=== PATIENT | male | born 1965 | race African-American/Black ===

== ENCOUNTER 2017-02-11 12:41 | Inpatient (IN) | payer OTHER ==
[2017-02-11 12:56] VITALS: BMI 21.6
--- NOTE | 2017-02-11 16:30 | HP ---
CIWA Score - CIWA Score Nausea/Vomitin-Mild Nausea/No Vomiting Muscle Tremors: 4-Moderate,w/Arms Extend Anxiety: 4-Mod. Anxious/Guarded Agitation: 4-Moderately Restless Paroxysmal Sweats: 1-Minimal Palms Moist Orientation: 0-Oriented Tacttile Disturbances: 0-None Auditory Disturbances: 0-None Visual Disturbances: 0-None Headache: 1-Very Mild CIWA-Ar Total Score: 15 Admission ROS BHS - HPI Chief Complaint: withdrawal sx Allergies/Adverse Reactions: Allergies Allergy/AdvReac Type Severity Reaction Status Date / Time No Known Allergies Allergy Verified 02/11/17 13:15 History of Present Illness: 52 years old male with long history of alcohol cocaine dependence has positive ppd and depression is admitted to detox Exam Limitations: No Limitations - Ebola screening Have you traveled outside of the country in the last 21 days: No Have you had contact with anyone from an Ebola affected area: No Have you been sick,other than usual withdrawal symptoms: No Do you have a fever: No - Review of Systems Constitutional: Loss of Appetite, Changes in sleep, Unintentional Wgt. Loss, Unexplained wgt Loss EENT: reports: No Symptoms Reported Respiratory: reports: No Symptoms reported Cardiac: reports: No Symptoms Reported GI: reports: Nausea, Poor Appetite, Poor Fluid Intake, Indigestion, Abdominal cramping : reports: No Symptoms Reported Musculoskeletal: reports: No Symptoms Reported Integumentary: reports: No Symptoms Reported Neuro: reports: Tremors Endocrine: reports: No Symptoms Reported Hematology: reports: No Symptoms Reported Psychiatric: reports: Judgement Intact, Orientated x3, Anxious, Depressed Other Systems: Reviewed and Negative Patient History - Patient Medical History Hx Anemia: No Hx Asthma: No Hx Chronic Obstructive Pulmonary Disease (COPD): No Hx Cancer: No Hx Cardiac Disorders: No Hx Congestive Heart Failure: No Hx Hypertension: No Hx Hypercholesterolemia: No Hx Pacemaker: No HX Cerebrovascular Accident: No Hx Seizures: No Hx Dementia: No Hx Diabetes: No Hx Gastrointestinal Disorders: Yes (acid reflux) Hx Liver Disease: No Hx Genitourinary Disorders: No Hx Sexually Transmitted Disorders: No Hx Renal Disease (ESRD): No Hx Thyroid Disease: No Hx Human Immunodeficiency Virus (HIV): No Hx Hepatitis C: No Hx Depression: Yes Hx Suicide Attempt: No Hx Bipolar Disorder: No Hx Schizophrenia: No - Patient Surgical History Past Surgical History: Yes Hx Neurologic Surgery: No Hx Cataract Extraction: No Hx Cardiac Surgery: No Hx Lung Surgery: No Hx Breast Surgery: No Hx Breast Biopsy: No Hx Abdominal Surgery: No Hx Appendectomy: No Hx Cholecystectomy: No Hx Genitourinary Surgery: No Hx Orthopedic Surgery: Yes (left thumb 2014) Anesthesia Reaction: No - PPD History Previous Implant?: No Documented Results: Positive w/o proof Implanted On Prior R Admission?: No PPD to be Administered?: No - Smoking Cessation Smoking history: Never smoked Have you smoked in the past 12 months: No Hx Chewing Tobacco Use: No Initiated information on smoking cessation: No - Substance & Tx. History Hx Alcohol Use: Yes Hx Substance Use: Yes Substance Use Type: Alcohol, Cocaine Hx Substance Use Treatment: Yes (2013) - Substances Abused Crack Route: Smoking Frequency: Daily Amount used: $200 Age of first use: 28 Date of Last Use: 02/10/17 Alcohol-vodka/beer Route: Oral Frequency: Daily Amount used: 1/2 pt./4-5 (24 oz.) Age of first use: 13 Date of Last Use: 02/10/17 Family Disease History - Family Disease History Family Disease History: Heart Disease: Mother (), Other: Father ( chronic back pain), Mother, Brother (1 brother), Sister (3 sisters) Admission Physical Exam S - Vital Signs Vital Signs: Vital Signs - 24 hr 02/11/17 12:54 Temperature 97 F L Pulse Rate 72 Respiratory 20 Rate Blood Pressure 131/97 - Physical General Appearance: Yes: Appropriately Dressed, Mild Distress, Thin, Tremorous, Irritable, Sweating, Anxious HEENTM: Yes: Hearing grossly Normal, Normal ENT Inspection, Normocephalic, Normal Voice Respiratory: Yes: Chest Non-Tender, Lungs Clear, Normal Breath Sounds, No Respiratory Distress, No Accessory Muscle Use Neck: Yes: Supple, Trachea in good position Breast: Yes: Breasts Symetrical Cardiology: Yes: Regular Rhythm, Regular Rate, S1, S2 Abdominal: Yes: Non Tender, Soft, Increased Bowel Sounds Genitourinary: Yes: Within Normal Limits Back: Yes: Normal Inspection Musculoskeletal: Yes: full range of Motion, Gait Steady Extremities: Yes: Normal Inspection, Normal Range of Motion, Non-Tender, Tremors Neurological: Yes: Fully Oriented, Alert, Motor Strength 5/5, Normal Response, Depressed Affect Integumentary: Yes: Warm Lymphatic: Yes: Within Normal Limits - Diagnostic (1) Alcohol dependence with uncomplicated withdrawal Current Visit: Yes Status: Acute (2) Cocaine dependence, uncomplicated Current Visit: Yes Status: Chronic (3) Positive PPD, treated Current Visit: Yes Status: Resolved (4) Weight loss Current Visit: Yes Status: Acute (5) GERD (gastroesophageal reflux disease) Current Visit: Yes Status: Suspected Qualifiers: Esophagitis presence: without esophagitis Qualified Code(s): K21.9 - Gastro-esophageal reflux disease without esophagitis Cleared for Admission S - Detox or Rehab [facility] Level of Care: Medically Managed Detox Regimen/Protocol: Librium [facility] Breath Alcohol Content Breath Alcohol Content: 0 Urine Drug Screen - Results Drug Screen Negative: No Urine Drug Screen Results: BLANCO-Cocaine
[2017-02-11] MEDS ORDERED: hydrOXYzine PAMOATE 50 MG CAPSULE (FP) PO PRN (16:33)
[2017-02-11] MEDS ORDERED: MAGNESIUM CITRATE 300 ML BOTTLE PO PRN (16:33)
[2017-02-11] MEDS ORDERED: guaiFENesin/D-METHORPHAN HB 10 ML UNIT-DOSE CUPS PO PRN (16:33)
[2017-02-11] MEDS ORDERED: MAG HYDROX/AL HYDROX/SIMETH 30 ML UNIT-DOSE CUP PO PRN (16:33)
[2017-02-11] MEDS ORDERED: ACETAMINOPHEN 325 MG TABLET (FP) PO PRN (16:33)
[2017-02-11] MEDS ORDERED: diphenhydrAMINE HCL 50 MG CAPSULE PO PRN (16:33)
[2017-02-11] MEDS ORDERED: P-EPHED 60MG/TRIPROLIDI 2.5MG TABLET PO PRN (16:33)
[2017-02-11] MEDS ORDERED: LOPERAMIDE HCL 2 MG CAPSULE PO PRN (16:33)
[2017-02-11] MEDS ORDERED: chlordiazePOXIDE HCL 25 MG CAPSULE PO PRN (16:33)
[2017-02-11] MEDS ORDERED: MAGNESIUM HYDROX 2400MG/30ML ORAL SUSPENSION 30 ML CUP PO PRN (16:33)
[2017-02-11] MEDS ORDERED: MENTHOL/PHENOL 1 EACH UD MM PRN (16:33)
[2017-02-11] MEDS: RANITIDINE HCL 150 MG TABLET (FP) PO SCH (23:09)
[2017-02-11] MEDS: chlordiazePOXIDE HCL 25 MG CAPSULE PO SCH (23:09)
[2017-02-11] MEDS: THIAMINE HCL 100 MG TABLET (FP) PO SCH (23:09)
[2017-02-12 00:48] LABS: URINE APPEARANCE CLEAR; URINE BILIRUBIN NEGATIVE (NEGATIVE); URINE BLOOD NEGATIVE (NEGATIVE); URINE COLOR YELLOW; URINE GLUCOSE (UA) NEGATIVE (NEGATIVE); URINE KETONE NEGATIVE (NEGATIVE); URINE LEUK ESTERASE NEGATIVE (NEGATIVE); URINE NITRITE NEGATIVE (NEGATIVE); URINE PROTEIN NEGATIVE (NEGATIVE); URINE UROBILINOGEN NEGATIVE mg/dL (0.2-1.0)
[2017-02-12] MEDS: chlordiazePOXIDE HCL 25 MG CAPSULE PO SCH ×4 (06:03→23:01)
--- NOTE | 2017-02-12 09:46 | CONSULT ---
[facility] Psychiatric Consult - Data Date of interview: 02/12/17 Admission source: [facility] Identifying data: This is 52 years old AA male unempoyed admitted for Alcohol,Cocaine dependence. Substance Abuse History: Patient reports drinking since 13 yo (1/2 pint of vodka and 4-5 24 oz of beer daily),Crack/cocaine since 28 year sold,spending $ 200 daily. Medical History: Significant for GERD,weight loss. Psychiatric History: Reports first contact with psychiatrist last year when he was admitted to the hospital in [facility] due to depression, expressing suicidal ideas after seaparation with his .patient was also under influence of crack.He was treated with Remeron 15 mg po hs.patient didnt continue his meds after discharge.He reports feeling depressed on and off but is not feeling like started psychotropic at present. Physical/Sexual Abuse/Trauma History: denies Mental Status Exam - Mental Status Exam Alert and Oriented to: Time, Place, Person Cognitive Function: Grossly Intact Patient Appearance: Unkempt Mood: Hopeful Affect: Mood Congruent Patient Behavior: Wandering, Cooperative Voice Loudness: Normal Thought Process: Goal Oriented Thought Disorder: Not Present, Paranoid Ideation Suicidal Ideation: Denies Homicidal Ideation: Denies Insight/Judgement: Fair Sleep: Fair Appetite: Good Muscle strength/Tone: Normal Gait/Station: Normal Psychiatric Findings - Problem List ([place] 1, 2,3) (1) Alcohol dependence with uncomplicated withdrawal Current Visit: Yes Status: Chronic (2) Weight loss Current Visit: Yes Status: Chronic (3) Cocaine dependence, uncomplicated Current Visit: Yes Status: Chronic (4) GERD (gastroesophageal reflux disease) Current Visit: Yes Status: Chronic Qualifiers: Esophagitis presence: without esophagitis Qualified Code(s): K21.9 - Gastro-esophageal reflux disease without esophagitis (5) Positive PPD, treated Current Visit: Yes Status: Resolved (6) Substance induced mood disorder Current Visit: Yes Status: Chronic - Initial Treatment Plan Initial Treatment Plan: Will monitor progress.Consider antidepressants if needed.
[2017-02-12 09:57] LABS: MCH 29.9 pg (25.7-33.7); MCHC 33.5 g/dl (32.0-35.9); MEAN CELL VOLUME 89.4 fl (80-96); MEAN PLT VOLUME 9.1 fl (7.5-11.1); PLATELET COUNT 295 K/MM3 (134-434); RDW 13.1 % (11.9-15.9)
[2017-02-12 10:10] LABS: ALBUMIN 3.4 g/dl (3.4-5.0); ALK PHOS 73 U/L (45-117); ANION GAP 5 (8-16); BILIRUBIN,TOTAL 0.3 mg/dL (0.2-1.0); CALCIUM 8.8 mg/dL (8.5-10.1); CO2 28 mmol/L (21-32); GLUCOSE,RANDOM 124 mg/dL (74-106); SGOT/AST 32 U/L (15-37); SGPT/ALT 41 U/L (12-78); TOT PROT 7.1 g/dl (6.4-8.2)
[2017-02-12] MEDS: RANITIDINE HCL 150 MG TABLET (FP) PO SCH ×2 (10:36→23:01)
[2017-02-12] MEDS: PRENATAL VITAMINS W/ FOLIC ACID TABLET (FP) PO SCH (10:36)
--- NOTE | 2017-02-12 12:48 | PN ---
S CIWA - CIWA Score Nausea/Vomitin-No Nausea/No Vomiting Muscle Tremors: 4-Moderate,w/Arms Extend Anxiety: 3 Agitation: 3 Paroxysmal Sweats: 1-Minimal Palms Moist Orientation: 0-Oriented Tacttile Disturbances: 1-Very Mild Itch/Numbness Auditory Disturbances: 0-None Visual Disturbances: 2-Mild Sensitivity Headache: 4-Moderately Severe CIWA-Ar Total Score: 18 BHS Progress Note (SOAP) Subjective: Tremors, H/A, Sweating, Body Aches. Objective: PT. A & O X 3. NO ACUTE DISTRESS. 02/12/17 12:49 Vital Signs Temperature 97.6 F 02/12/17 11:22 Pulse Rate 74 02/12/17 11:22 Respiratory Rate 17 02/12/17 11:22 Blood Pressure 115/81 02/12/17 11:22 O2 Sat by Pulse Oximetry (%) Laboratory Tests 02/11/17 02/12/17 02/12/17 21:27 06:00 06:00 WBC 8.0 RBC 4.43 Hgb 13.3 Hct 39.6 MCV 89.4 MCH 29.9 MCHC 33.5 RDW 13.1 Plt Count 295 MPV 9.1 Sodium 140 Potassium 4.1 Chloride 107 Carbon Dioxide 28 Anion Gap 5 L BUN 21 H Creatinine 1.0 Creat Clearance w eGFR > 60 Random Glucose 124 H Calcium 8.8 Total Bilirubin 0.3 AST 32 ALT 41 Alkaline Phosphatase 73 Total Protein 7.1 Albumin 3.4 Urine Color Yellow Urine Appearance Clear Urine pH 5.0 Urine Protein Negative Urine Glucose (UA) Negative Urine Ketones Negative Urine Blood Negative Urine Nitrite Negative Urine Bilirubin Negative Urine Urobilinogen Negative RPR Titer 02/12/17 06:00 WBC RBC Hgb Hct MCV MCH MCHC RDW Plt Count MPV Sodium Potassium Chloride Carbon Dioxide Anion Gap BUN Creatinine Creat Clearance w eGFR Random Glucose Calcium Total Bilirubin AST ALT Alkaline Phosphatase Total Protein Albumin Urine Color Urine Appearance Urine pH Urine Protein Urine Glucose (UA) Urine Ketones Urine Blood Urine Nitrite Urine Bilirubin Urine Urobilinogen RPR Titer Nonreactive LABS NOTED. HIV AB, HCV AB RESULTS PENDING. 02/12/17 12:52 Assessment: 02/12/17 12:49 WITHDRAWAL SYMPTOMS. Plan: CONTINUE DETOX. BGM ACBK FOR ELEVATED ADMISSION RANDOM GLUCOSE LEVEL. INCREASE DAILY PO FLUID INTAKE.
[2017-02-12 15:06] LABS: HIV 1 & 2 AB NEGATIVE; HIV 1 AGp24 NEGATIVE
[2017-02-12] MEDS: THIAMINE HCL 100 MG TABLET (FP) PO SCH (23:01)
[2017-02-13] MEDS: chlordiazePOXIDE HCL 25 MG CAPSULE PO SCH ×3 (06:20→17:30)
[2017-02-13] MEDS: PRENATAL VITAMINS W/ FOLIC ACID TABLET (FP) PO SCH (10:38)
[2017-02-13] MEDS: RANITIDINE HCL 150 MG TABLET (FP) PO SCH ×2 (10:38→22:33)
--- NOTE | 2017-02-13 19:37 | PN ---
[facility] CIWA - CIWA Score Nausea/Vomitin-No Nausea/No Vomiting Muscle Tremors: 3 Anxiety: 2 Agitation: 0-Normal Activity Paroxysmal Sweats: 4-Forehead w/Sweat Beads Orientation: 0-Oriented Tacttile Disturbances: 3-Moderate Itch/Numb/Burn Auditory Disturbances: 0-None Visual Disturbances: 0-None Headache: 3-Moderate CIWA-Ar Total Score: 15 BHS Progress Note (SOAP) Subjective: Body Aches, H/A, Sweating, Fatigue. Objective: PT. A & O X 3. NO ACUTE DISTRESS. PT. DENIES CHEST PAIN. 02/13/17 19:34 Vital Signs Temperature 97.9 F 02/13/17 18:11 Pulse Rate 64 02/13/17 18:11 Respiratory Rate 18 02/13/17 18:11 Blood Pressure 115/74 02/13/17 18:11 O2 Sat by Pulse Oximetry (%) Laboratory Tests 02/11/17 02/12/17 02/12/17 21:27 06:00 06:00 WBC 8.0 RBC 4.43 Hgb 13.3 Hct 39.6 MCV 89.4 MCH 29.9 MCHC 33.5 RDW 13.1 Plt Count 295 MPV 9.1 Sodium Potassium Chloride Carbon Dioxide Anion Gap BUN Creatinine Creat Clearance w eGFR Random Glucose Calcium Total Bilirubin AST ALT Alkaline Phosphatase Total Protein Albumin Urine Color Yellow Urine Appearance Clear Urine pH 5.0 Urine Protein Negative Urine Glucose (UA) Negative Urine Ketones Negative Urine Blood Negative Urine Nitrite Negative Urine Bilirubin Negative Urine Urobilinogen Negative RPR Titer Hepatitis C Antibody <0.1 HIV 1&2 Antibody Screen HIV P24 Antigen 02/12/17 02/12/17 02/12/17 06:00 06:00 08:30 WBC RBC Hgb Hct MCV MCH MCHC RDW Plt Count MPV Sodium 140 Potassium 4.1 Chloride 107 Carbon Dioxide 28 Anion Gap 5 L BUN 21 H Creatinine 1.0 Creat Clearance w eGFR > 60 Random Glucose 124 H Calcium 8.8 Total Bilirubin 0.3 AST 32 ALT 41 Alkaline Phosphatase 73 Total Protein 7.1 Albumin 3.4 Urine Color Urine Appearance Urine pH Urine Protein Urine Glucose (UA) Urine Ketones Urine Blood Urine Nitrite Urine Bilirubin Urine Urobilinogen RPR Titer Nonreactive Hepatitis C Antibody HIV 1&2 Antibody Screen Negative HIV P24 Antigen Negative LABS NOTED. Assessment: 02/13/17 19:34 WITHDRAWAL SYMPTOMS. Plan: CONTINUE DETOX. INCREASE DAILY PO FLUID INTAKE.
[2017-02-13] MEDS: chlordiazePOXIDE 5 MG CAPSULE PO SCH (22:33)
[2017-02-13] MEDS: THIAMINE HCL 100 MG TABLET (FP) PO SCH (22:33)
[2017-02-14] MEDS: chlordiazePOXIDE 5 MG CAPSULE PO SCH ×3 (05:35→17:32)
[2017-02-14] MEDS: RANITIDINE HCL 150 MG TABLET (FP) PO SCH (10:33)
[2017-02-14] MEDS: PRENATAL VITAMINS W/ FOLIC ACID TABLET (FP) PO SCH (10:33)
[2017-02-14 18:26] VITALS: BP 124/86; PULSE 75; TEMP 97.9
--- NOTE | 2017-02-14 18:35 | PN ---
BHS Progress Note (SOAP) Subjective: Sweating, anxious, interrupted sleep Objective: 02/14/17 18:34 Last Vital Signs Temp Pulse Resp BP Pulse Ox 97.9 F 75 18 124/86 02/14/17 18:26 02/14/17 18:26 02/14/17 18:26 02/14/17 18:26 Laboratory Tests 02/11/17 02/12/17 02/12/17 21:27 06:00 06:00 WBC 8.0 RBC 4.43 Hgb 13.3 Hct 39.6 MCV 89.4 MCH 29.9 MCHC 33.5 RDW 13.1 Plt Count 295 MPV 9.1 Sodium Potassium Chloride Carbon Dioxide Anion Gap BUN Creatinine Creat Clearance w eGFR POC Glucometer Random Glucose Calcium Total Bilirubin AST ALT Alkaline Phosphatase Total Protein Albumin Urine Color Yellow Urine Appearance Clear Urine pH 5.0 Urine Protein Negative Urine Glucose (UA) Negative Urine Ketones Negative Urine Blood Negative Urine Nitrite Negative Urine Bilirubin Negative Urine Urobilinogen Negative RPR Titer Hepatitis C Antibody <0.1 HIV 1&2 Antibody Screen HIV P24 Antigen 02/12/17 02/12/17 02/12/17 06:00 06:00 08:30 WBC RBC Hgb Hct MCV MCH MCHC RDW Plt Count MPV Sodium 140 Potassium 4.1 Chloride 107 Carbon Dioxide 28 Anion Gap 5 L BUN 21 H Creatinine 1.0 Creat Clearance w eGFR > 60 POC Glucometer Random Glucose 124 H Calcium 8.8 Total Bilirubin 0.3 AST 32 ALT 41 Alkaline Phosphatase 73 Total Protein 7.1 Albumin 3.4 Urine Color Urine Appearance Urine pH Urine Protein Urine Glucose (UA) Urine Ketones Urine Blood Urine Nitrite Urine Bilirubin Urine Urobilinogen RPR Titer Nonreactive Hepatitis C Antibody HIV 1&2 Antibody Screen Negative HIV P24 Antigen Negative 02/14/17 05:36 WBC RBC Hgb Hct MCV MCH MCHC RDW Plt Count MPV Sodium Potassium Chloride Carbon Dioxide Anion Gap BUN Creatinine Creat Clearance w eGFR POC Glucometer 101 Random Glucose Calcium Total Bilirubin AST ALT Alkaline Phosphatase Total Protein Albumin Urine Color Urine Appearance Urine pH Urine Protein Urine Glucose (UA) Urine Ketones Urine Blood Urine Nitrite Urine Bilirubin Urine Urobilinogen RPR Titer Hepatitis C Antibody HIV 1&2 Antibody Screen HIV P24 Antigen Labs noted Assessment: 02/14/17 18:35 Withdrawal symptoms Plan: Continue detox
[2017-02-14] MEDS ORDERED: chlordiazePOXIDE HCL 10 MG CAPSULE PO SCH (23:00)
--- NOTE | 2017-02-15 17:04 | EKG ---
Test Reason : Blood Pressure : / mmHG Vent. Rate : 055 BPM Atrial Rate : 055 BPM P-R Int : 160 ms QRS Dur : 080 ms QT Int : 464 ms P-R-T Axes : 075 041 -34 degrees QTc Int : 443 ms SINUS BRADYCARDIA WITH SINUS ARRHYTHMIA T WAVE ABNORMALITY, CONSIDER INFERIOR ISCHEMIA ABNORMAL ECG NO PREVIOUS ECGS AVAILABLE Confirmed by NILAM RESTREPO MD ([id number]) on 02/15/2017 5:04:34 PM Referred By: Confirmed By:NILAM RESTREPO MD
== END 2017-02-14 18:58 | disposition left against medical advice (07) | DRG 770 ==
LOC: YASAS 12:41 → Y3N 14:22
PROVIDERS: ADMIT Internal Medicine; ATTEND Internal Medicine
PROC: HZ2ZZZZ Detoxification Services for Substance Abuse Treatment (ICD-10-PCS; principal; 2017-02-11)
DX: F10.230 Alcohol dependence with withdrawal, uncomplicated (principal); F14.20 Cocaine dependence, uncomplicated; F19.24 Other psychoactive substance dependence with psychoactive substance-induced mood disorder; R76.11 Nonspecific reaction to tuberculin skin test without active tuberculosis; K21.9 Gastro-esophageal reflux disease without esophagitis; R63.4 Abnormal weight loss; Z68.21 Body mass index [BMI] 21.0-21.9, adult; Z59.0 Homelessness
CPT/HCPCS: 36415; 71020-TC; 80053; 81003; 85027; 86593; 86803; 87389; 93005; 93010

== ENCOUNTER 2017-05-21 21:11 | Inpatient (IN) | payer OTHER ==
[2017-05-21 21:31] VITALS: BMI 26.9
--- NOTE | 2017-05-21 21:56 | HP ---
CIWA Score - CIWA Score Nausea/Vomitin Muscle Tremors: 4-Moderate,w/Arms Extend Anxiety: 4-Mod. Anxious/Guarded Agitation: 4-Moderately Restless Paroxysmal Sweats: 1-Minimal Palms Moist Orientation: 0-Oriented Tacttile Disturbances: 0-None Auditory Disturbances: 0-None Visual Disturbances: 0-None Headache: 3-Moderate CIWA-Ar Total Score: 19 Admission ROS BHS - HPI Chief Complaint: Alcohol withdrawal symptoms Allergies/Adverse Reactions: Allergies Allergy/AdvReac Type Severity Reaction Status Date / Time No Known Allergies Allergy Verified 05/21/17 23:46 History of Present Illness: 52 years old male with a long history of alcohol dependence is admitted to detox. Patient has been in previous detox and reports 3 years of sobriety. Patient reports history of anxiety and depression. Denies suicidal ideation at this time. Exam Limitations: No Limitations - Ebola screening Have you traveled outside of the country in the last 21 days: No Have you had contact with anyone from an Ebola affected area: No Have you been sick,other than usual withdrawal symptoms: No Do you have a fever: No - Review of Systems Constitutional: Chills, Diaphoresis, Loss of Appetite, Malaise, Night Sweats, Changes in sleep EENT: reports: No Symptoms Reported Respiratory: reports: No Symptoms reported Cardiac: reports: No Symptoms Reported GI: reports: Diarrhea (x 3), Poor Appetite, Poor Fluid Intake, Abdominal cramping : reports: No Symptoms Reported Musculoskeletal: reports: Back Pain, Joint Pain, Muscle Pain, Muscle Weakness, Neck Pain Integumentary: reports: No Symptoms Reported Neuro: reports: Headache, Tingling, Tremors Endocrine: reports: No Symptoms Reported Hematology: reports: No Symptoms Reported Psychiatric: reports: Judgement Intact, Mood/Affect Appropiate, Orientated x3 Other Systems: Reviewed and Negative Patient History - Patient Medical History Hx Anemia: No Hx Asthma: No Hx Chronic Obstructive Pulmonary Disease (COPD): No Hx Cancer: No Hx Cardiac Disorders: No Hx Congestive Heart Failure: No Hx Hypertension: No Hx Hypercholesterolemia: No Hx Pacemaker: No HX Cerebrovascular Accident: No Hx Seizures: No Hx Dementia: No Hx Diabetes: No Hx Gastrointestinal Disorders: Yes (acid reflux) Hx Liver Disease: No Hx Genitourinary Disorders: No Hx Sexually Transmitted Disorders: No Hx Renal Disease (ESRD): No Hx Thyroid Disease: No Hx Human Immunodeficiency Virus (HIV): No Hx Hepatitis C: No Hx Depression: Yes Hx Suicide Attempt: No Hx Bipolar Disorder: No Hx Schizophrenia: No - Patient Surgical History Past Surgical History: Yes Hx Neurologic Surgery: No Hx Cataract Extraction: No Hx Cardiac Surgery: No Hx Lung Surgery: No Hx Breast Surgery: No Hx Breast Biopsy: No Hx Abdominal Surgery: No Hx Appendectomy: No Hx Cholecystectomy: No Hx Genitourinary Surgery: No Hx Section: Yes Hx Orthopedic Surgery: Yes (left thumb 2015) Anesthesia Reaction: No - PPD History Previous Implant?: No (PPD POSITIVE) PPD to be Administered?: No - Reproductive History Patient is a Female of Child Bearing Age (11 -55 yrs old): No (MALE) - Smoking Cessation Smoking history: Never smoked Have you smoked in the past 12 months: No Hx Chewing Tobacco Use: No Initiated information on smoking cessation: No - Substance & Tx. History Hx Alcohol Use: Yes (BEER) Hx Substance Use: Yes Substance Use Type: Alcohol, Cocaine, Marijuana Hx Substance Use Treatment: Yes - Substances Abused BEER, VODKA Route: Oral Frequency: Daily Amount used: BEER-8 X 16 OZ, VODKA 1 PINT Age of first use: 12 Date of Last Use: 05/21/17 Marijuana/Hashish Route: Smoking Frequency: Daily Amount used: $20 Age of first use: 12 Date of Last Use: 05/21/17 Cocaine Route: Inhalation Frequency: Daily Amount used: 2 GRAM OR $200 Age of first use: 15 Date of Last Use: 05/21/17 Family Disease History - Family Disease History Family Disease History: Heart Disease: Mother (), Other: Father ( chronic back pain), Mother Admission Physical Exam [facility] - Vital Signs Vital Signs: Vital Signs - 24 hr 05/21/17 21:29 Temperature 97.8 F Pulse Rate 67 Respiratory 18 Rate Blood Pressure 130/83 - Physical General Appearance: Yes: Moderate Distress, Tremorous, Sweating, Anxious HEENTM: Yes: EOMI, Normal Voice, DASHAWN Respiratory: Yes: Lungs Clear, Normal Breath Sounds, No Respiratory Distress Neck: Yes: Within Normal Limits, No masses,lesions,Nodules, Supple Breast: Yes: Breast Exam Deferred Cardiology: Yes: Regular Rhythm, Regular Rate, S1, S2, Other (tatoo to chest wall) Abdominal: Yes: Normal Bowel Sounds, Soft Genitourinary: Yes: Within Normal Limits Back: Yes: Within Normal Limits Musculoskeletal: Yes: Within Normal Limits, Joint swelling, Muscle Pain, Muscle weakness Extremities: Yes: Tremors, Other (right arm tatoo) Neurological: Yes: Alert, Normal Mood/Affect, Normal Response Integumentary: Yes: Dry Lymphatic: Yes: Within Normal Limits - Diagnostic (1) Cannabis dependence, uncomplicated Current Visit: Yes Status: Acute (2) Depression Current Visit: Yes Status: Chronic Qualifiers: Depression Type: unspecified Qualified Code(s): F32.9 - Major depressive disorder, single episode, unspecified (3) Alcohol dependence with uncomplicated withdrawal Current Visit: Yes Status: Acute (4) Cocaine dependence, uncomplicated Current Visit: Yes Status: Acute (5) GERD (gastroesophageal reflux disease) Current Visit: No Status: Chronic Qualifiers: Esophagitis presence: without esophagitis Qualified Code(s): K21.9 - Gastro -esophageal reflux disease without esophagitis Cleared for Admission [facility] - Detox or Rehab [facility] Level of Care: Medically Managed Detox Regimen/Protocol: Librium [facility] Breath Alcohol Content Breath Alcohol Content: 0 Urine Drug Screen - Results Drug Screen Negative: No Urine Drug Screen Results: THC-Marijuana, BLANCO-Cocaine
[2017-05-21] MEDS ORDERED: guaiFENesin/D-METHORPHAN HB 10 ML UNIT-DOSE CUPS PO PRN (22:02)
[2017-05-21] MEDS ORDERED: chlordiazePOXIDE HCL 25 MG CAPSULE PO PRN (22:02)
[2017-05-21] MEDS ORDERED: ACETAMINOPHEN 325 MG TABLET (FP) PO PRN (22:02)
[2017-05-21] MEDS ORDERED: IBUPROFEN 400 MG TABLET (FP) PO PRN (22:02)
[2017-05-21] MEDS ORDERED: MENTHOL/PHENOL 1 EACH UD MM PRN (22:02)
[2017-05-21] MEDS ORDERED: LOPERAMIDE HCL 2 MG CAPSULE PO PRN (22:02)
[2017-05-21] MEDS ORDERED: MAG HYDROX/AL HYDROX/SIMETH 30 ML UNIT-DOSE CUP PO PRN (22:02)
[2017-05-21] MEDS ORDERED: MAGNESIUM CITRATE 300 ML BOTTLE PO PRN (22:02)
[2017-05-21] MEDS ORDERED: P-EPHED 60MG/TRIPROLIDI 2.5MG TABLET PO PRN (22:02)
[2017-05-21] MEDS ORDERED: MAGNESIUM HYDROX 2400MG/30ML ORAL SUSPENSION 30 ML CUP PO PRN (22:02)
[2017-05-21] MEDS: chlordiazePOXIDE HCL 25 MG CAPSULE PO SCH (23:49)
[2017-05-22] MEDS: chlordiazePOXIDE HCL 25 MG CAPSULE PO SCH ×4 (05:26→22:24)
[2017-05-22 10:16] LABS: MCH 29.1 pg (25.7-33.7); MEAN CELL VOLUME 91.2 fl (80-96); MEAN PLT VOLUME 8.4 fl (7.5-11.1); PLATELET COUNT 281 K/MM3 (134-434); RDW 13.5 % (11.9-15.9); WHITE BLOOD COUNT 6.1 K/mm3 (4.0-10.0)
[2017-05-22 10:24] LABS: ALK PHOS 65 U/L (45-117); ANION GAP 7 (8-16); BILIRUBIN,TOTAL 0.2 mg/dL (0.2-1.0); CALCIUM 8.4 mg/dL (8.5-10.1); CO2 27 mmol/L (21-32); CREATININE 0.9 mg/dL (0.7-1.3); GLUCOSE,RANDOM 86 mg/dL (74-106); SGOT/AST 13 U/L (15-37); SGPT/ALT 22 U/L (12-78); TOT PROT 6.2 g/dl (6.4-8.2)
--- NOTE | 2017-05-22 10:58 | CONSULT ---
[facility] Psychiatric Consult - Data Date of interview: 05/22/17 Admission source: [facility] Identifying data: Readmission to [facility] for this 52 y/o AA male seeking detox treatment on for alcohol,cocaine (crack) and marijuana dependence.Patient is single,a father of one,domiciled,currently unemployed ( just quit his job) and deprived of any source of income. Substance Abuse History: Discussed in this interview.History of substance abuse confirmed by patient.See details in current [facility] report : Smoking history: Never smoked. Have you smoked in the past 12 months: No. Hx Chewing Tobacco Use: No. Initiated information on smoking cessation: No. - Substance & Tx. History. Hx Alcohol Use: Yes (BEER). Hx Substance Use: Yes. Substance Use Type: Alcohol, Cocaine, Marijuana. Hx Substance Use Treatment: Yes. - Substances Abused. BEER, VODKA. Route: Oral. Frequency: Daily. Amount used: BEER-8 X 16 OZ, VODKA 1 PINT. Age of first use: 12. Date of Last Use: . Marijuana/Hashish. Route: Smoking. Frequency: Daily. Amount used : $20. Age of first use: 12. Date of Last Use: 05/21/17. Cocaine. Route: Inhalation. Frequency: Daily. Amount used: 2 GRAM OR $200. Age of first use: 15. Date of Last Use: 05/21/17 Medical History: GERD. Psychiatric History: Onset of emotional disturbances seems to correlate with separation from ([id number]).Patient reports one psychiatric hospitalization at a facility in [facility] (suicidal ideation,depressed mood, anxiety,deterioration of functioning,refractory insomnia).Mr Montalvo indicates that he was treated with remeron 15 mg/hs.Patient dropped out of treatment after his discharge.During his stay at [facility] - 02/12/17 to 02/17/17 - he declined to take psychotropic medications.No reported history of suicide attempts. Physical/Sexual Abuse/Trauma History: Patient denies history of abuse. Additional Comment: Urine Drug Screen Results: THC-Marijuana, BLANCO-Cocaine.Noted. Mental Status Exam - Mental Status Exam Alert and Oriented to: Time, Place, Person Cognitive Function: Good Patient Appearance: Well Groomed Mood: Withdrawn, Hopeful, Euthymic Affect: Appropriate, Normal Range Patient Behavior: Fatigued, Appropriate, Cooperative Speech Pattern: Clear, Appropriate Voice Loudness: Normal Thought Process: Intact, Goal Oriented Thought Disorder: Not Present Hallucinations: Denies Suicidal Ideation: Denies Homicidal Ideation: Denies Insight/Judgement: Poor Sleep: Poorly, Difficulty falling asleep (wants ambien) Appetite: Good Muscle strength/Tone: Normal Gait/Station: Normal Psychiatric Findings - Problem List ([place] 1, 2,3) (1) Alcohol dependence with uncomplicated withdrawal Current Visit: Yes Status: Acute (2) Cannabis dependence, uncomplicated Current Visit: Yes Status: Acute (3) Cocaine dependence, uncomplicated Current Visit: Yes Status: Acute (4) Substance induced mood disorder Current Visit: Yes Status: Acute (5) Insomnia Current Visit: Yes Status: Acute - Initial Treatment Plan Initial Treatment Plan: Psychoeducation.Sleep hygiene.Detoxification.Ambien 10 mg po hs prn.Patient is informed of risk of parasomnias.Consented (verbally) to folllow this careplan.Observation.
[2017-05-22] MEDS: PRENATAL VITAMINS W/ FOLIC ACID TABLET (FP) PO SCH (11:17)
--- NOTE | 2017-05-22 15:10 | PN ---
[facility] CIWA - CIWA Score Nausea/Vomitin-No Nausea/No Vomiting Muscle Tremors: 3 Anxiety: 4-Mod. Anxious/Guarded Agitation: 2 Paroxysmal Sweats: 3 Orientation: 2-Disoriented Date<2 days Tacttile Disturbances: 1-Very Mild Itch/Numbness Auditory Disturbances: 0-None Visual Disturbances: 0-None Headache: 3-Moderate CIWA-Ar Total Score: 18 BHS Progress Note (SOAP) Subjective: Diarrhea, Sweating, H/A, Tremors, Vomiting, Fatigue. Objective: PT. A & O X 2 (UNCERTAIN ABOUT DAY / DATE). PT. OBSERVED AMBULATING ON UNIT. NO ACUTE DISTRESS. 05/22/17 15:11 Vital Signs Temperature 97.8 F 05/22/17 13:29 Pulse Rate 63 05/22/17 13:29 Respiratory Rate 18 05/22/17 13:29 Blood Pressure 121/73 05/22/17 13:29 O2 Sat by Pulse Oximetry (%) Laboratory Tests 05/22/17 05/22/17 05/22/17 07:50 07:50 07:50 WBC 6.1 RBC 4.22 Hgb 12.3 Hct 38.4 MCV 91.2 MCH 29.1 MCHC 32.0 RDW 13.5 Plt Count 281 MPV 8.4 Sodium 142 Potassium 3.8 Chloride 108 H Carbon Dioxide 27 Anion Gap 7 L BUN 20 H Creatinine 0.9 Creat Clearance w eGFR > 60 Random Glucose 86 D Calcium 8.4 L Total Bilirubin 0.2 D AST 13 L D ALT 22 D Alkaline Phosphatase 65 Total Protein 6.2 L Albumin 3.0 L RPR Titer Nonreactive LABS NOTED. UA RESULTS PENDING. 05/22/17 15:12 Assessment: 05/22/17 15:11 WITHDRAWAL SYMPTOMS. Plan: CONTINUE DETOX.
[2017-05-22] MEDS ORDERED: ZOLPIDEM TARTRATE 5 MG TABLET PO PRN (22:00)
[2017-05-22] MEDS: THIAMINE HCL 100 MG TABLET (FP) PO SCH (22:23)
[2017-05-23] MEDS: chlordiazePOXIDE HCL 25 MG CAPSULE PO SCH ×3 (06:02→16:47)
[2017-05-23] MEDS: PRENATAL VITAMINS W/ FOLIC ACID TABLET (FP) PO SCH (10:32)
--- NOTE | 2017-05-23 13:42 | PN ---
[facility] CIWA - CIWA Score Nausea/Vomitin-No Nausea/No Vomiting Muscle Tremors: 4-Moderate,w/Arms Extend Anxiety: 4-Mod. Anxious/Guarded Agitation: 4-Moderately Restless Paroxysmal Sweats: 3 Orientation: 0-Oriented Tacttile Disturbances: 1-Very Mild Itch/Numbness Auditory Disturbances: 0-None Visual Disturbances: 0-None Headache: 0-None Present CIWA-Ar Total Score: 16 S Progress Note (SOAP) Subjective: Chills, tremor, sweating, interrupted sleep Objective: 05/23/17 13:39 Last Vital Signs Temp Pulse Resp BP Pulse Ox 95.0 F L 57 L 18 128/96 05/23/17 09:36 05/23/17 09:36 05/23/17 09:36 05/23/17 09:36 Laboratory Tests 05/22/17 05/22/17 05/22/17 07:50 07:50 07:50 WBC 6.1 RBC 4.22 Hgb 12.3 Hct 38.4 MCV 91.2 MCH 29.1 MCHC 32.0 RDW 13.5 Plt Count 281 MPV 8.4 Sodium 142 Potassium 3.8 Chloride 108 H Carbon Dioxide 27 Anion Gap 7 L BUN 20 H Creatinine 0.9 Creat Clearance w eGFR > 60 Random Glucose 86 D Calcium 8.4 L Total Bilirubin 0.2 D AST 13 L D ALT 22 D Alkaline Phosphatase 65 Total Protein 6.2 L Albumin 3.0 L RPR Titer Nonreactive Labs noted: bun 20 Assessment: 05/23/17 13:41 Withdrawal symptoms Noted with mild azotemia Plan: Continue detox Azotemia: encouraged to drink lots of water
--- NOTE | 2017-05-23 17:15 | EKG ---
Test Reason : Blood Pressure : / mmHG Vent. Rate : 055 BPM Atrial Rate : 055 BPM P-R Int : 170 ms QRS Dur : 084 ms QT Int : 474 ms P-R-T Axes : 062 025 -42 degrees QTc Int : 453 ms SINUS BRADYCARDIA T WAVE ABNORMALITY, CONSIDER INFEROLATERAL ISCHEMIA ABNORMAL ECG WHEN COMPARED WITH ECG OF 11-FEB-2017 18:17, INVERTED T WAVES HAVE REPLACED NONSPECIFIC T WAVE ABNORMALITY IN LATERAL LEADS Confirmed by ALFIE SESAY MD ([id number]) on 05/23/2017 5:15:00 PM Referred By: Confirmed By:ALFIE SESAY MD
[2017-05-23] MEDS: chlordiazePOXIDE 5 MG CAPSULE PO SCH (22:26)
[2017-05-23] MEDS: THIAMINE HCL 100 MG TABLET (FP) PO SCH (22:26)
[2017-05-24] MEDS: chlordiazePOXIDE 5 MG CAPSULE PO SCH ×3 (07:13→17:51)
[2017-05-24] MEDS: PRENATAL VITAMINS W/ FOLIC ACID TABLET (FP) PO SCH (10:14)
--- NOTE | 2017-05-24 13:56 | PN ---
S Progress Note (SOAP) Subjective: Headache, sweating, interrupted sleep Objective: 05/24/17 13:56 Last Vital Signs Temp Pulse Resp BP Pulse Ox 98.6 F 68 18 144/104 05/24/17 13:53 05/24/17 13:53 05/24/17 13:53 05/24/17 13:53 Elevated b/p noted: 144/104 Laboratory Tests 05/22/17 05/22/17 05/22/17 07:50 07:50 07:50 WBC 6.1 RBC 4.22 Hgb 12.3 Hct 38.4 MCV 91.2 MCH 29.1 MCHC 32.0 RDW 13.5 Plt Count 281 MPV 8.4 Sodium 142 Potassium 3.8 Chloride 108 H Carbon Dioxide 27 Anion Gap 7 L BUN 20 H Creatinine 0.9 Creat Clearance w eGFR > 60 Random Glucose 86 D Calcium 8.4 L Total Bilirubin 0.2 D AST 13 L D ALT 22 D Alkaline Phosphatase 65 Total Protein 6.2 L Albumin 3.0 L RPR Titer Nonreactive Labs reviewed: BUN 20 Assessment: 05/24/17 13:57 Withdrawal symptoms Elevated b/p and mild azotemia noted Plan: Continue detox Elevated b/p probably due to anxiety: encouraged relaxation techniques (deep breathing exercises, socializing with peers/staff), watching TV etc, start clonidine 0.1mg PO q8hr prn if b/p > 140/90 Azotemia: encouraged to drink lots of water for hydration
[2017-05-24] MEDS ORDERED: cloNIDine HCL 0.1 MG TABLET PO PRN (14:10)
[2017-05-24] MEDS: THIAMINE HCL 100 MG TABLET (FP) PO SCH (22:18)
[2017-05-24] MEDS: chlordiazePOXIDE HCL 10 MG CAPSULE PO SCH (22:18)
[2017-05-25] MEDS: chlordiazePOXIDE HCL 10 MG CAPSULE PO SCH (06:23)
[2017-05-25 06:24] VITALS: BP 135/82; PULSE 57; TEMP 98
== END 2017-05-25 08:30 | disposition home or self-care (01) | DRG 774 ==
LOC: YASAS 21:11 → Y3N 22:08
PROVIDERS: ADMIT Internal Medicine; ATTEND Internal Medicine
PROC: HZ2ZZZZ Detoxification Services for Substance Abuse Treatment (ICD-10-PCS; principal; 2017-05-21)
DX: F10.230 Alcohol dependence with withdrawal, uncomplicated (principal); F14.20 Cocaine dependence, uncomplicated; F12.20 Cannabis dependence, uncomplicated; F32.9 Major depressive disorder, single episode, unspecified; F19.24 Other psychoactive substance dependence with psychoactive substance-induced mood disorder; G47.00 Insomnia, unspecified; R79.89 Other specified abnormal findings of blood chemistry; R76.11 Nonspecific reaction to tuberculin skin test without active tuberculosis
CPT/HCPCS: 36415; 80053; 85027; 86593; 93005; 93010

== ENCOUNTER 2017-08-31 14:58 | Inpatient (IN) | payer OTHER ==
[2017-08-31 16:36] VITALS: BMI 23.6
[2017-08-31] MEDS ORDERED: chlordiazePOXIDE HCL 25 MG CAPSULE PO ONE (18:10)
[2017-08-31] MEDS ORDERED: MENTHOL/PHENOL 1 EACH UD MM PRN (18:10)
[2017-08-31] MEDS ORDERED: MAGNESIUM CITRATE 300 ML BOTTLE PO PRN (18:10)
[2017-08-31] MEDS ORDERED: hydrOXYzine PAMOATE 50 MG CAPSULE (FP) PO PRN (18:10)
[2017-08-31] MEDS ORDERED: chlordiazePOXIDE HCL 25 MG CAPSULE PO PRN (18:10)
[2017-08-31] MEDS ORDERED: LOPERAMIDE HCL 2 MG CAPSULE PO PRN (18:10)
[2017-08-31] MEDS ORDERED: P-EPHED 60MG/TRIPROLIDI 2.5MG TABLET PO PRN (18:10)
[2017-08-31] MEDS ORDERED: ACETAMINOPHEN 325 MG TABLET (FP) PO PRN (18:10)
[2017-08-31] MEDS ORDERED: MAGNESIUM HYDROX 2400MG/30ML ORAL SUSPENSION 30 ML CUP PO PRN (18:10)
[2017-08-31] MEDS ORDERED: MAG HYDROX/AL HYDROX/SIMETH 30 ML UNIT-DOSE CUP PO PRN (18:10)
[2017-08-31] MEDS ORDERED: IBUPROFEN 400 MG TABLET (FP) PO PRN (18:10)
[2017-08-31] MEDS ORDERED: guaiFENesin/D-METHORPHAN HB 10 ML UNIT-DOSE CUPS PO PRN (18:10)
--- NOTE | 2017-08-31 18:10 | HP ---
CIWA Score - CIWA Score Nausea/Vomitin Muscle Tremors: 2 Anxiety: 3 Agitation: 2 Paroxysmal Sweats: 2 Orientation: 0-Oriented Tacttile Disturbances: 2-Mild Itch/Numbness/Burn Auditory Disturbances: 0-None Visual Disturbances: 0-None Headache: 2-Mild CIWA-Ar Total Score: 16 Admission ROS S - [facility] Chief Complaint: alcohol withdrawal sx Allergies/Adverse Reactions: Allergies Allergy/AdvReac Type Severity Reaction Status Date / Time No Known Allergies Allergy Verified 08/31/17 17:06 History of Present Illness: 52 yo m with h/o chronic alcoholism nd cociane depednecn reports alcoho ameena sx when he does not drink requesitng inpatient detoxificationf. PMHX anxiety, depression and insomnia, thirsty. no h/o sieuzres, no DTs, no soi. Exam Limitations: No Limitations - Ebola screening Have you traveled outside of the country in the last 21 days: No Have you had contact with anyone from an Ebola affected area: No Have you been sick,other than usual withdrawal symptoms: No Do you have a fever: No - Review of Systems Constitutional: Chills, Diaphoresis, Night Sweats, Unintentional Wgt. Loss EENT: reports: No Symptoms Reported Respiratory: reports: No Symptoms reported Cardiac: reports: No Symptoms Reported GI: reports: Diarrhea, Nausea, Poor Appetite, Poor Fluid Intake, Vomiting, Indigestion, Abdominal cramping : reports: No Symptoms Reported Musculoskeletal: reports: Back Pain, Joint Pain Integumentary: reports: Flushing, Sweating Neuro: reports: Headache, Numbness, Paresthesia, Tingling, Tremors, Weakness Endocrine: reports: Increased Thirst Hematology: reports: No Symptoms Reported Psychiatric: reports: Judgement Intact, Mood/Affect Appropiate, Orientated x3, Anxious, Depressed Other Systems: Reviewed and Negative Patient History - Patient Medical History Hx Anemia: No Hx Asthma: No Hx Chronic Obstructive Pulmonary Disease (COPD): No Hx Cancer: No Hx Cardiac Disorders: No Hx Congestive Heart Failure: No Hx Hypertension: No Hx Hypercholesterolemia: No Hx Pacemaker: No HX Cerebrovascular Accident: No Hx Seizures: No Hx Dementia: No Hx Diabetes: No Hx Gastrointestinal Disorders: No Hx Liver Disease: No Hx Genitourinary Disorders: No Hx Sexually Transmitted Disorders: No Hx Renal Disease (ESRD): No Hx Thyroid Disease: No Hx Human Immunodeficiency Virus (HIV): No Hx Hepatitis C: No Hx Depression: Yes (no si a this time) Hx Suicide Attempt: No Hx Bipolar Disorder: No Hx Schizophrenia: No - Patient Surgical History Past Surgical History: Yes Hx Neurologic Surgery: No Hx Cataract Extraction: No Hx Cardiac Surgery: No Hx Lung Surgery: No Hx Breast Surgery: No Hx Breast Biopsy: No Hx Abdominal Surgery: No Hx Appendectomy: No Hx Cholecystectomy: No Hx Genitourinary Surgery: No Hx Section: No Hx Orthopedic Surgery: Yes (left thumb 2014) Anesthesia Reaction: No - PPD History Previous Implant?: Yes Documented Results: Positive w/proof Implanted On Prior R Admission?: No PPD to be Administered?: No - Reproductive History Patient is a Female of Child Bearing Age (11 -55 yrs old): No Patient : No - Smoking Cessation Smoking history: Never smoked Have you smoked in the past 12 months: No Aproximately how many cigarettes per day: 0 Hx Chewing Tobacco Use: No Initiated information on smoking cessation: Yes 'Breaking Loose' booklet given: 08/31/17 - Substance & Tx. History Hx Alcohol Use: Yes Hx Substance Use: Yes Substance Use Type: Alcohol, Cocaine Hx Substance Use Treatment: Yes ([facility]) - Substances Abused Alcohol Route: Oral Frequency: Daily Amount used: 4 16 OZ BEERS/ 1/2 PINT VODKA Age of first use: 12 Date of Last Use: 08/31/17 Crack Route: Smoking Frequency: Daily Amount used: $100-150 Age of first use: 28 Date of Last Use: 08/31/17 Family Disease History - Family Disease History Family Disease History: Heart Disease: Mother (), Other: Father ( chronic back pain), Mother, Brother (1 brother), Sister (3 sisters) Admission Physical Exam BHS - Vital Signs Vital Signs: Vital Signs - 24 hr 08/31/17 16:34 Temperature 97.2 F L Pulse Rate 79 Respiratory 19 Rate Blood Pressure 136/87 - Physical General Appearance: Yes: No Apparent Distress, Nourished, Appropriately Dressed , Disheveled, Mild Distress, Thin, Tremorous, Irritable, Sweating HEENTM: Yes: Within Normal Limits, EOMI, Hearing grossly Normal, Normal ENT Inspection, Normocephalic, Normal Voice, Pharynx Normal Respiratory: Yes: Within Normal Limits, Chest Non-Tender, Lungs Clear, Normal Breath Sounds, No Respiratory Distress, No Accessory Muscle Use Neck: Yes: Within Normal Limits, No masses,lesions,Nodules, Supple, Trachea in good position Breast: Yes: Breast Exam Deferred Cardiology: Yes: Within Normal Limits, Regular Rhythm, Regular Rate, S1, S2 Abdominal: Yes: Within Normal Limits, Normal Bowel Sounds, Non Tender, Flat, Soft, Increased Bowel Sounds, Other (umbilical hernia) Genitourinary: Yes: Within Normal Limits Back: Yes: Normal Inspection, Muscle Spasm Musculoskeletal: Yes: full range of Motion, Gait Steady, Pelvis Stable, Back pain, Joint Stiffness, Joint swelling Extremities: Yes: Normal Capillary Refill, Normal Range of Motion, Non-Tender, Tremors Neurological: Yes: manipulative therapy specialist II-XII NML intact, Fully Oriented, Motor Strength 5/5, Normal Response, Depressed Affect Integumentary: Yes: Normal Color, Warm, Diaphoresis, Moist Lymphatic: Yes: Within Normal Limits - Addiitonal Findings: withdrawal sx - Diagnostic (1) Alcohol dependence with uncomplicated withdrawal Current Visit: No Status: Acute (2) Insomnia Current Visit: No Status: Acute (3) Substance induced mood disorder Current Visit: No Status: Acute (4) Cannabis dependence, uncomplicated Current Visit: No Status: Chronic (5) Cocaine dependence, uncomplicated Current Visit: No Status: Chronic (6) Depression Current Visit: No Status: Chronic Qualifiers: (7) GERD (gastroesophageal reflux disease) Current Visit: No Status: Chronic Qualifiers: (8) PPD positive Current Visit: No Status: Chronic (9) Weight loss Current Visit: No Status: Chronic Cleared for Admission [facility] - Detox or Rehab [facility] Level of Care: Medically Managed Detox Regimen/Protocol: Librium [facility] Breath Alcohol Content Breath Alcohol Content: 0 Urine Drug Screen - Results Drug Screen Negative: No Urine Drug Screen Results: BLANCO-Cocaine, BZO-Benzodiazepines
[2017-08-31] MEDS: chlordiazePOXIDE HCL 25 MG CAPSULE PO SCH (23:13)
[2017-08-31] MEDS: THIAMINE HCL 100 MG TABLET (FP) PO SCH (23:14)
[2017-09-01 05:00] LABS: URINE APPEARANCE TURBID; URINE BILIRUBIN NEGATIVE (<2.0 mg/dL); URINE BLOOD NEGATIVE (NEGATIVE); URINE COLOR AMBER; URINE GLUCOSE (UA) NEGATIVE (NEGATIVE); URINE KETONE NEGATIVE (NEGATIVE); URINE LEUK ESTERASE NEGATIVE (NEGATIVE); URINE NITRITE NEGATIVE (NEGATIVE); URINE UROBILINOGEN NEGATIVE mg/dL (0.2-1.0)
[2017-09-01 05:29] LABS: URINE PROTEIN 1+ (NEGATIVE)
[2017-09-01] MEDS: chlordiazePOXIDE HCL 25 MG CAPSULE PO SCH ×4 (05:44→22:17)
[2017-09-01 05:48] LABS: URINE BACTERIA MODERATE /hpf (NONE SEEN)
--- NOTE | 2017-09-01 08:46 | CONSULT ---
[facility] Psychiatric Consult - Data Date of interview: 09/01/17 Admission source: [facility] Identifying data: This is 52 years old male, single, father of one, living with GF, unemployed, withy no psychiatric hospitalization history, is here for detox with history of chronic alcoholism nd pierce pollack reports alcoho wihdrwal symptoms, when he does not drink requesitng inpatient detoxificationf. Reports abusinf Crack and Nicotine as well. Substance Abuse History: Smoking history: Never smoked. Have you smoked in the past 12 months: No. Aproximately how many cigarettes per day: 0. Hx Chewing Tobacco Use: No. Initiated information on smoking cessation: Yes. 'Breaking Loose' booklet given: 08/31/17. - Substance & Tx. History. Hx Alcohol Use: Yes. Hx Substance Use: Yes. Substance Use Type: Alcohol, Cocaine. Hx Substance Use Treatment: Yes ([facility]). - Substances Abused. Alcohol. Route: Oral. Frequency: Daily. Amount used: 4 16 OZ BEERS/ 1/2 PINT VODKA. Age of first use: 12. Date of Last Use: 08/31/17. Crack. Route: Smoking. Frequency: Daily. Amount used: $100-150. Age of first use: 28. Date of Last Use: 08/31/17 Medical History: GERD, PPD positive history, Weight loss hisory, Psychiatric History: Patient reports history of anxiety, depression and insomnia, denies suicidal, homicidal history. Reports no psychiatric medications taking prior to admission Physical/Sexual Abuse/Trauma History: Denies Additional Comment: Observation. Detox Unit Care Protocol Mental Status Exam - Mental Status Exam Alert and Oriented to: Person Cognitive Function: Fair Patient Appearance: Unkempt Mood: Sad Affect: Flat Patient Behavior: Sedated Speech Pattern: Delayed Voice Loudness: Mildly Soft/Quiet Thought Process: Circumstantial Thought Disorder: Being Controlled Hallucinations: Denies Suicidal Ideation: Denies Homicidal Ideation: Denies Insight/Judgement: Fair Sleep: Difficulty falling asleep Appetite: Weight loss Muscle strength/Tone: Mild Hypotonicity Gait/Station: Shuffling Additional Comments: Observation. Detox Unit Care Protocol Psychiatric Findings - Problem List ([place] 1, 2,3) (1) Alcohol dependence with uncomplicated withdrawal Current Visit: No Status: Acute (2) Substance induced mood disorder Current Visit: No Status: Acute (3) Cannabis dependence, uncomplicated Current Visit: No Status: Chronic (4) Cocaine dependence, uncomplicated Current Visit: No Status: Chronic - Initial Treatment Plan Initial Treatment Plan: Observation. Detox Unit Care Protocol
--- NOTE | 2017-09-01 09:05 | PN ---
[facility] CIWA - CIWA Score Nausea/Vomitin Muscle Tremors: 3 Anxiety: 3 Agitation: 3 Paroxysmal Sweats: 1-Minimal Palms Moist Orientation: 0-Oriented Tacttile Disturbances: 1-Very Mild Itch/Numbness Auditory Disturbances: 1-Very Mild Visual Disturbances: 0-None Headache: 2-Mild CIWA-Ar Total Score: 17 BHS Progress Note (SOAP) Subjective: ALERT,IRRITABLE,ANXIOUS,INTERRUPTED SLEEP,TREMOR,PAIN IN THE BODY Objective: 09/01/17 09:02 Vital Signs Temperature 96.8 F L 09/01/17 07:26 Pulse Rate 71 09/01/17 07:26 Respiratory Rate 18 09/01/17 07:26 Blood Pressure 133/76 09/01/17 07:26 O2 Sat by Pulse Oximetry (%) EKG NSR ,INVERTED T IN 3 ,AVF,ST IN V2 NO CHEST PAIN,NO SOB,NO DIZZINESS LABS PENDING Assessment: 09/01/17 09:04 WITHDRAWAL SYMPTOM AND SIGNS Plan: CONTINUE DETOX
[2017-09-01] MEDS: PRENATAL VITAMINS W/ FOLIC ACID TABLET (FP) PO SCH (10:27)
--- NOTE | 2017-09-01 13:06 | EKG ---
Test Reason : Blood Pressure : / mmHG Vent. Rate : 071 BPM Atrial Rate : 071 BPM P-R Int : 164 ms QRS Dur : 086 ms QT Int : 420 ms P-R-T Axes : 064 027 -20 degrees QTc Int : 456 ms NORMAL SINUS RHYTHM SEPTAL INFARCT , AGE UNDETERMINED T WAVE ABNORMALITY, CONSIDER INFERIOR ISCHEMIA ABNORMAL ECG WHEN COMPARED WITH ECG OF 22-MAY-2017 00:27, NO SIGNIFICANT CHANGE WAS FOUND Confirmed by HINA WHITFIELD MD ([id number]) on 09/01/2017 1:06:15 PM Referred By: Confirmed By:HINA WHITFIELD MD
[2017-09-01] MEDS: THIAMINE HCL 100 MG TABLET (FP) PO SCH (22:17)
[2017-09-02] MEDS: chlordiazePOXIDE HCL 25 MG CAPSULE PO SCH ×3 (05:50→17:47)
--- NOTE | 2017-09-02 09:07 | PN ---
S CIWA - CIWA Score Nausea/Vomitin Muscle Tremors: 3 Anxiety: 3 Agitation: 2 Paroxysmal Sweats: 1-Minimal Palms Moist Orientation: 0-Oriented Tacttile Disturbances: 1-Very Mild Itch/Numbness Auditory Disturbances: 1-Very Mild Visual Disturbances: 1-Very Mild Sensitivity Headache: 2-Mild CIWA-Ar Total Score: 17 BHS Progress Note (SOAP) Subjective: ALERT,IRRITABLE,ANXIOUS,INTERRUPTED SLEEP,TREMOR Objective: 09/02/17 09:05 Vital Signs Temperature 98.2 F 09/02/17 06:06 Pulse Rate 62 09/02/17 06:06 Respiratory Rate 18 09/02/17 06:06 Blood Pressure 112/67 09/02/17 06:06 O2 Sat by Pulse Oximetry (%) Laboratory Last Values Urine Color [place] 09/01/17 01:00 Urine Appearance Turbid 09/01/17 01:00 Urine pH 5.0 (5.0-8.0) 09/01/17 01:00 Ur Specific [place] 1.033 (1.001-1.035) 09/01/17 01:00 Urine Protein 1+ (NEGATIVE) H 09/01/17 01:00 Urine Glucose (UA) Negative (NEGATIVE) 09/01/17 01:00 Urine Ketones Negative (NEGATIVE) 09/01/17 01:00 Urine Blood Negative (NEGATIVE) 09/01/17 01:00 Urine Nitrite Negative (NEGATIVE) 09/01/17 01:00 Urine Bilirubin Negative (<2.0 mg/dL) 09/01/17 01:00 Urine Urobilinogen Negative mg/dL (0.2-1.0) 09/01/17 01:00 Ur Leukocyte Esterase Negative (NEGATIVE) 09/01/17 01:00 Urine WBC (Auto) 32 /hpf (3-5) 09/01/17 01:00 Urine RBC (Auto) 4 /hpf (0-3) 09/01/17 01:00 Urine Bacteria Moderate /hpf (NONE SEEN) 09/01/17 01:00 LAB PENDING Assessment: 09/02/17 09:06 WITHDRAWAL SYMPTOM Plan: CONTINUE DETOX,ENCOURAGE ORAL FLUID,REPEAT UA R/O UTI
[2017-09-02] MEDS: PRENATAL VITAMINS W/ FOLIC ACID TABLET (FP) PO SCH (10:07)
[2017-09-02 10:23] LABS: HEMATOCRIT 37.8 % (35.4-49); HEMOGLOBIN 12.4 GM/dL (11.7-16.9); MCH 29.9 pg (25.7-33.7); MCHC 32.9 g/dl (32.0-35.9); MEAN CELL VOLUME 90.9 fl (80-96); MEAN PLT VOLUME 7.9 fl (7.5-11.1); PLATELET COUNT 301 K/MM3 (134-434); RBC 4.16 M/mm3 (4.00-5.60); RDW 13.1 % (11.9-15.9); WHITE BLOOD COUNT 5.7 K/mm3 (4.0-10.0)
[2017-09-02 11:01] LABS: CHLORIDE 108 mmol/L (98-107); POTASSIUM 4.1 mmol/L (3.5-5.1); SODIUM 143 mmol/L (136-145)
[2017-09-02 11:15] LABS: ALBUMIN 2.8 g/dl (3.4-5.0); ALK PHOS 80 U/L (45-117); ANION GAP 9 (8-16); BILIRUBIN,TOTAL 0.1 mg/dL (0.2-1.0); BLOOD UREA NITROGEN 12 mg/dL (7-18); CALCIUM 8.6 mg/dL (8.5-10.1); CO2 26 mmol/L (21-32); CREATININE 0.7 mg/dL (0.7-1.3); GLUCOSE,RANDOM 82 mg/dL (74-106); SGOT/AST 18 U/L (15-37); SGPT/ALT 33 U/L (12-78); TOT PROT 6.8 g/dl (6.4-8.2)
[2017-09-02 16:38] LABS: URINE APPEARANCE SLCLOUDY; URINE BILIRUBIN NEGATIVE (<2.0 mg/dL); URINE BLOOD NEGATIVE (NEGATIVE); URINE COLOR YELLOW; URINE GLUCOSE (UA) NEGATIVE (NEGATIVE); URINE KETONE NEGATIVE (NEGATIVE); URINE LEUK ESTERASE TRACE (NEGATIVE); URINE NITRITE NEGATIVE (NEGATIVE); URINE PROTEIN NEGATIVE (NEGATIVE); URINE UROBILINOGEN NEGATIVE mg/dL (0.2-1.0)
[2017-09-02 16:47] LABS: CALCIUM OXALATE CRYSTALS MODERATE /hpf (NONE SEEN); EPI CELLS RARE /HPF (FEW); URINE MUCUS MODERATE
[2017-09-02] MEDS: THIAMINE HCL 100 MG TABLET (FP) PO SCH (22:09)
[2017-09-02] MEDS: chlordiazePOXIDE 5 MG CAPSULE PO SCH (22:09)
[2017-09-02] MEDS: MELATONIN 5 MG TABLETS PO PRN (22:10)
[2017-09-03] MEDS: chlordiazePOXIDE 5 MG CAPSULE PO SCH ×3 (06:44→17:55)
--- NOTE | 2017-09-03 09:34 | PN ---
S Progress Note (SOAP) Subjective: ALERT,IRRITABLE,ANXIOUS,INTERRUPTED SLEEP Objective: 09/03/17 09:33 Vital Signs Temperature 97.7 F 09/03/17 06:31 Pulse Rate 60 09/03/17 06:31 Respiratory Rate 18 09/03/17 06:31 Blood Pressure 124/78 09/03/17 06:31 O2 Sat by Pulse Oximetry (%) Assessment: 09/03/17 09:33 WITHDRAWAL SYMPTOM Plan: CONTINUE DETOX,DISCHARGE IN AM
[2017-09-03] MEDS: PRENATAL VITAMINS W/ FOLIC ACID TABLET (FP) PO SCH (10:24)
[2017-09-03] MEDS: THIAMINE HCL 100 MG TABLET (FP) PO SCH (22:14)
[2017-09-03] MEDS: chlordiazePOXIDE HCL 10 MG CAPSULE PO SCH (22:14)
[2017-09-03] MEDS: MELATONIN 5 MG TABLETS PO PRN (22:15)
[2017-09-04] MEDS: chlordiazePOXIDE HCL 10 MG CAPSULE PO SCH (05:09)
[2017-09-04 06:10] VITALS: BP 129/76; PULSE 68; TEMP 98.2
--- NOTE | 2017-09-04 09:31 | DS ---
[facility] Detox Discharge Summary Admission Date: 08/31/17 Discharge Date: 09/04/17 - History Present History: Alcohol Dependence, Cannabis Dependence Pertinent Past History: 52 year old male with h/o chronic alcoholism and cocaine dependence is s/p inpatient treatment for alcohol withdrawal. - Physical Exam Results Vital Signs: Vital Signs Temperature 98.2 F 09/04/17 06:00 Pulse Rate 68 09/04/17 06:00 Respiratory Rate 18 09/04/17 06:00 Blood Pressure 129/76 09/04/17 06:00 O2 Sat by Pulse Oximetry (%) Pertinent Admission Physical Exam Findings: Withdrawal sx Laboratory Last Values WBC 5.7 K/mm3 (4.0-10.0) 09/02/17 07:00 RBC 4.16 M/mm3 (4.00-5.60) 09/02/17 07:00 Hgb 12.4 GM/dL (11.7-16.9) 09/02/17 07:00 Hct 37.8 % (35.4-49) 09/02/17 07:00 MCV 90.9 fl (80-96) 09/02/17 07:00 MCH 29.9 pg (25.7-33.7) 09/02/17 07:00 MCHC 32.9 g/dl (32.0-35.9) 09/02/17 07:00 RDW 13.1 % (11.9-15.9) 09/02/17 07:00 Plt Count 301 K/MM3 (134-434) 09/02/17 07:00 MPV 7.9 fl (7.5-11.1) 09/02/17 07:00 Sodium 143 mmol/L (136-145) 09/02/17 07:00 Potassium 4.1 mmol/L (3.5-5.1) 09/02/17 07:00 Chloride 108 mmol/L (98-107) H 09/02/17 07:00 Carbon Dioxide 26 mmol/L (21-32) 09/02/17 07:00 Anion Gap 9 (8-16) 09/02/17 07:00 BUN 12 mg/dL (7-18) D 09/02/17 07:00 Creatinine 0.7 mg/dL (0.7-1.3) D 09/02/17 07:00 Creat Clearance w eGFR > 60 (>60) 09/02/17 07:00 Random Glucose 82 mg/dL (74-106) 09/02/17 07:00 Calcium 8.6 mg/dL (8.5-10.1) 09/02/17 07:00 Total Bilirubin 0.1 mg/dL (0.2-1.0) L D 09/02/17 07:00 AST 18 U/L (15-37) D 09/02/17 07:00 ALT 33 U/L (12-78) D 09/02/17 07:00 Alkaline Phosphatase 80 U/L (45-117) D 09/02/17 07:00 Total Protein 6.8 g/dl (6.4-8.2) 09/02/17 07:00 Albumin 2.8 g/dl (3.4-5.0) L 09/02/17 07:00 Urine Color Yellow 09/02/17 13:50 Urine Appearance Slcloudy 09/02/17 13:50 Urine pH 5.0 (5.0-8.0) 09/02/17 13:50 Ur Specific [place] 1.021 (1.001-1.035) 09/02/17 13:50 Urine Protein Negative (NEGATIVE) 09/02/17 13:50 Urine Glucose (UA) Negative (NEGATIVE) 09/02/17 13:50 Urine Ketones Negative (NEGATIVE) 09/02/17 13:50 Urine Blood Negative (NEGATIVE) 09/02/17 13:50 Urine Nitrite Negative (NEGATIVE) 09/02/17 13:50 Urine Bilirubin Negative (<2.0 mg/dL) 09/02/17 13:50 Urine Urobilinogen Negative mg/dL (0.2-1.0) 09/02/17 13:50 Ur Leukocyte Esterase Trace (NEGATIVE) 09/02/17 13:50 Urine WBC (Auto) 17 /hpf (3-5) 09/02/17 13:50 Urine RBC (Auto) 2 /hpf (0-3) 09/02/17 13:50 Ur Epithelial Cells Rare /HPF (FEW) 09/02/17 13:50 Calcium Oxalate Crystal Moderate /hpf (NONE SEEN) 09/02/17 13:50 Urine Bacteria Moderate /hpf (NONE SEEN) 09/01/17 01:00 Urine Mucus Moderate 09/02/17 13:50 RPR Titer Nonreactive (NONREACTIVE) 09/02/17 07:00 Labs noted - Treatment Hospital Course: Detox Protocol Followed, Detoxed Safely, Responded well, Discharged Condition Good - Medication Discharge Medications: Ambulatory Orders NK [No Known Home Medication] 02/11/17 - Diagnosis (1) Alcohol dependence with uncomplicated withdrawal Current Visit: Yes Status: Acute (2) Insomnia Current Visit: Yes Status: Acute (3) Substance induced mood disorder Current Visit: Yes Status: Acute (4) Cannabis dependence, uncomplicated Current Visit: Yes Status: Chronic (5) Depression Current Visit: Yes Status: Chronic Qualifiers: (6) GERD (gastroesophageal reflux disease) Current Visit: Yes Status: Chronic Qualifiers: Esophagitis presence: without esophagitis Qualified Code(s): K21.9 - Gastro -esophageal reflux disease without esophagitis - AMA Did Patient Leave Against Medical Advice: No
--- NOTE | 2017-09-04 10:37 | EKG ---
Test Reason : Blood Pressure : / mmHG Vent. Rate : 067 BPM Atrial Rate : 067 BPM P-R Int : 166 ms QRS Dur : 082 ms QT Int : 408 ms P-R-T Axes : 070 012 -42 degrees QTc Int : 431 ms NORMAL SINUS RHYTHM T WAVE ABNORMALITY, CONSIDER INFERIOR ISCHEMIA ABNORMAL ECG WHEN COMPARED WITH ECG OF 31-AUG-2017 19:22, NO SIGNIFICANT CHANGE WAS FOUND Confirmed by ROSEANN DOSHI, HINA ([id number]) on 09/04/2017 10:37:41 AM Referred By: Confirmed By:HINA WHITFIELD MD
== END 2017-09-04 09:10 | disposition home or self-care (01) | DRG 774 ==
LOC: YASAS 14:58 → Y6N 17:55
PROVIDERS: ADMIT Internal Medicine; ATTEND Internal Medicine
PROC: HZ2ZZZZ Detoxification Services for Substance Abuse Treatment (ICD-10-PCS; principal; 2017-08-31)
DX: F10.230 Alcohol dependence with withdrawal, uncomplicated (principal); F14.20 Cocaine dependence, uncomplicated; F12.20 Cannabis dependence, uncomplicated; F19.24 Other psychoactive substance dependence with psychoactive substance-induced mood disorder; F32.9 Major depressive disorder, single episode, unspecified; G47.00 Insomnia, unspecified; R63.4 Abnormal weight loss; Z68.23 Body mass index [BMI] 23.0-23.9, adult; R76.11 Nonspecific reaction to tuberculin skin test without active tuberculosis
CPT/HCPCS: 36415; 71046-TC-FY; 80053; 81003; 81015; 85027; 86593; 93005; 93010

== ENCOUNTER 2019-02-09 11:37 | Inpatient (IN) | payer OTHER, BC | END 2019-02-14 10:41 | disposition home or self-care (01) | LOC: YASAS 11:37 → Y3N 15:29 ==

== ENCOUNTER 2019-07-24 11:57 | Inpatient (IN) | payer OTHER ==
--- NOTE | 2019-07-24 12:15 | BHS.RME ---
Substance Use & Tx History - Substance Use History Alcohol Substance amount: 1 pint vodka Frequency of use: Daily Substance route: Oral Date of Last Use: 07/24/19 Cocaine (Crack) Substance amount: $300-400 Frequency of use: Daily Substance route: Smoking Date of Last Use: 07/24/19 Nicotine Substance amount: 1-2 ciggs Frequency of use: Daily Substance route: Smoking Date of Last Use: 07/24/19 Physical/Psych/Mental Status - Behavior General Behavior: Increased activity (restlessness, agitation) Eye Contact: Normal - Cooperativeness Cooperativeness: Cooperative - Thinking Thought Processes: Tight, Logical, Goal Directed - Physical Health Problems Is patient presently having any pain?: No Does patient presently have any injuries (include location): No Does patient currently have a fever: No Is patient : No CIWA Nausea/Vomitin-Mild Nausea/No Vomiting Muscle Tremors: 3 Anxiety: 3 Agitation: 2 Paroxysmal Sweats: 1-Minimal Palms Moist Orientation: 0-Oriented Tacttile Disturbances: 0-None Auditory Disturbances: 0-None Visual Disturbances: 0-None Headache: 1-Very Mild (drank earlier this morning, may not yet be in full withdrawals) CIWA-Ar Total Score: 11
--- NOTE | 2019-07-24 13:21 | HP ---
CIWA Score Nausea/Vomitin-Mild Nausea/No Vomiting Muscle Tremors: 3 Anxiety: 3 Agitation: 2 Paroxysmal Sweats: 1-Minimal Palms Moist Orientation: 0-Oriented Tacttile Disturbances: 1-Very Mild Itch/Numbness Auditory Disturbances: 0-None Visual Disturbances: 0-None Headache: 2-Mild (drank earlier this morning, may not yet be in full withdrawals ) CIWA-Ar Total Score: 13 - Admission Criteria OASAS Guidelines: Admission for Medically Managed Detox: Requires at least one of the followin. CIWA greater than 12 2. Seizures within the past 24 hours 3. Delirium tremens within the past 24 hours 4. Hallucinations within the past 24 hours 5. Acute intervention needed for co occurring medical disorder 6. Acute intervention needed for co occurring psychiatric disorder 7. Severe withdrawal that cannot be handled at a lower level of care (continued vomiting, continued diarrhea, abnormal vital signs) requiring intravenous medication and/or fluids 8. 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 Chief Complaint: i need help to stop drinking alcohol and get my life together Allergies/Adverse Reactions: Allergies Allergy/AdvReac Type Severity Reaction Status Date / Time No Known Allergies Allergy Verified 02/09/19 12:36 History of Present Illness: this 54 years old male with alcohol and cociane dependence seeking detox, withdrawal symptom, multiple admissions in detox,last detox [facility] 02/09/19 to 02/14/19 syncope no seizure longest sobriety 5 years would like to go to rehab after detox Exam Limitations: No Limitations - Ebola screening Have you traveled outside of the country in the last 21 days: No Have you had contact with anyone from an Ebola affected area: No Have you been sick,other than usual withdrawal symptoms: No Do you have a fever: No - Review of Systems Constitutional: Loss of Appetite, Malaise, Night Sweats, Changes in sleep, Weakness EENT: reports: Nose Congestion Respiratory: reports: No Symptoms reported Cardiac: reports: No Symptoms Reported GI: reports: Nausea, Poor Appetite, Indigestion, Abdominal cramping : reports: No Symptoms Reported Musculoskeletal: reports: Back Pain, Muscle Pain Neuro: reports: Headache, Tremors Endocrine: reports: No Symptoms Reported Hematology: reports: No Symptoms Reported Psychiatric: reports: No Sypmtoms Reported, Judgement Intact, Mood/Affect Appropiate, Orientated x3 Other Systems: Reviewed and Negative Patient History - Patient Medical History Hx Anemia: No Hx Asthma: No Hx Chronic Obstructive Pulmonary Disease (COPD): No Hx Cancer: No Hx Cardiac Disorders: No Hx Congestive Heart Failure: No Hx Hypertension: Yes (NOT ON MEDS) Hx Hypercholesterolemia: No Hx Pacemaker: No HX Cerebrovascular Accident: No Hx Seizures: No Hx Dementia: No Hx Diabetes: No Hx Gastrointestinal Disorders: Yes (HX OF GERD) Hx Liver Disease: No Hx Genitourinary Disorders: No Hx Sexually Transmitted Disorders: No Hx Renal Disease (ESRD): No Hx Thyroid Disease: No Hx Human Immunodeficiency Virus (HIV): No Hx Hepatitis C: No Hx Depression: Yes (NOT IN [place]) Hx Suicide Attempt: No Hx Bipolar Disorder: No Hx Schizophrenia: No Other Medical History: no suicidal,no homicidal - Patient Surgical History Past Surgical History: Yes Hx Neurologic Surgery: No Hx Cataract Extraction: No Hx Cardiac Surgery: No Hx Lung Surgery: No Hx Breast Surgery: No Hx Breast Biopsy: No Hx Abdominal Surgery: No Hx Appendectomy: No Hx Cholecystectomy: No Hx Genitourinary Surgery: No Hx Section: No Hx Orthopedic Surgery: Yes (left thumb 2014) Anesthesia Reaction: No - PPD History Previous Implant?: Yes Documented Results: Positive w/proof Implanted On Prior R Admission?: No Results: cxr02/16/19 neg - Smoking Cessation Smoking history: Never smoked Have you smoked in the past 12 months: No Aproximately how many cigarettes per day: 0 Hx Chewing Tobacco Use: No - Substance & Tx. History Hx Alcohol Use: Yes Hx Substance Use: Yes Substance Use Type: Alcohol, Cocaine Hx Substance Use Treatment: Yes ([facility] 02/09/19 to 02/14/19) - Substances abused Alcohol Substance route: Oral Frequency: Daily Amount used: 2pints of vodka/3 of 24 ozs of beer Age of first use: 11 Date of last use: 07/23/19 Cocaine Substance route: Smoking Frequency: Daily Amount used: 200$ Age of first use: 23 Date of last use: 07/24/[address] [facility] - Physical General Appearance: Yes: Moderate Distress, Tremorous, Irritable, Sweating HEENTM: Yes: Normocephalic, DASHAWN, Pharynx Normal Respiratory: Yes: Lungs Clear, Normal Breath Sounds, No Respiratory Distress Neck: Yes: Within Normal Limits, Supple, Thyroid tenderness Breast: Yes: Within Normal Limits Cardiology: Yes: Within Normal Limits, Regular Rhythm, Regular Rate, S1, S2 Abdominal: Yes: Within Normal Limits, Normal Bowel Sounds, Non Tender, Flat, Soft Genitourinary: Yes: Within Normal Limits Back: Yes: Muscle Spasm Musculoskeletal: Yes: Back pain, Muscle Pain Extremities: Yes: Tremors 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 - Detox or Rehab [facility] Level of Care: Medically Managed Detox Regimen/Protocol: Librium Breathalyzer - Breathalyzer Breathalyzer: 0 Urine Drug Screen - Test Device Lot number: [id number] Expiration date: 04/29/21 - Control Is test valid?: Yes - Results Drug screen NEGATIVE: No Urine drug screen results: BLANCO-Cocaine, BZO-Benzodiazepines Inpatient Rehab Admission - Rehab Decision to Admit Inpatient rehab admission?: No
[2019-07-24] MEDS ORDERED: ACETAMINOPHEN 325 MG TABLET (FP) PO PRN ×2 (13:31)
[2019-07-24] MEDS ORDERED: IBUPROFEN 400 MG TABLET (FP) PO PRN (13:31)
[2019-07-24] MEDS ORDERED: MAGNESIUM HYDROX 2400MG/30ML ORAL SUSPENSION 30 ML CUP PO PRN (13:31)
[2019-07-24] MEDS ORDERED: MELATONIN 5 MG TABLETS PO PRN (13:31)
[2019-07-24] MEDS ORDERED: chlordiazePOXIDE HCL 25 MG CAPSULE PO PRN (13:31)
[2019-07-24] MEDS ORDERED: MENTHOL/PHENOL 1 EACH UD MM PRN (13:31)
[2019-07-24] MEDS ORDERED: MAGNESIUM CITRATE 300 ML BOTTLE PO PRN (13:31)
[2019-07-24] MEDS ORDERED: BISMUTH SUBSALICYLATE 524 MG/30 ML UD PO PRN (13:31)
[2019-07-24] MEDS ORDERED: MAG HYDROX/AL HYDROX/SIMETH 30 ML UNIT-DOSE CUP PO PRN (13:31)
[2019-07-24] MEDS ORDERED: hydrOXYzine PAMOATE 25 MG CAPSULE (FP) PO PRN (13:31)
[2019-07-24] MEDS ORDERED: METHOCARBAMOL 500 MG TABLET PO PRN (13:31)
[2019-07-24 13:34] VITALS: BMI 25.1
[2019-07-24] MEDS: SILVER SULFADIAZINE 1% TOP CREAM 50 GM JAR TP SCH ×2 (15:46→22:44)
[2019-07-24] MEDS: chlordiazePOXIDE HCL 25 MG CAPSULE PO SCH ×2 (17:54→22:44)
[2019-07-24 18:11] LABS: ALBUMIN 3.4 g/dl (3.4-5.0); BILIRUBIN,TOTAL 0.4 mg/dL (0.2-1); BLOOD UREA NITROGEN 17.7 mg/dL (7-18); CALCIUM 9.4 mg/dL (8.5-10.1); POTASSIUM 3.9 mmol/L (3.5-5.1); TOT PROT 7.4 g/dl (6.4-8.2)
[2019-07-24 19:01] LABS: HEMOGLOBIN 12.3 GM/dL (11.7-16.9); MCH 30.6 pg (25.7-33.7); MCHC 33.2 g/dl (32.0-35.9); MEAN CELL VOLUME 92.1 fl (80-96); MEAN PLT VOLUME 8.5 fl (7.5-11.1); PLATELET COUNT 324 K/MM3 (134-434); RBC 4.01 M/mm3 (4.00-5.60); RDW 12.8 % (11.9-15.9); WHITE BLOOD COUNT 5.8 K/mm3 (4.0-10.0)
[2019-07-24] MEDS: THIAMINE HCL 100 MG TABLET (FP) PO SCH (22:44)
[2019-07-25] MEDS: chlordiazePOXIDE HCL 25 MG CAPSULE PO SCH ×3 (05:19→17:05)
[2019-07-25] MEDS ORDERED: ACETAMINOPHEN 325 MG TABLET (FP) PO ONE (09:53)
--- NOTE | 2019-07-25 09:57 | PN ---
S CIWA - CIWA Score Nausea/Vomitin-No Nausea/No Vomiting Muscle Tremors: 3 Anxiety: 3 Agitation: 1-Slight > Activity Paroxysmal Sweats: 2 Orientation: 0-Oriented Tacttile Disturbances: 0-None Auditory Disturbances: 0-None Visual Disturbances: 0-None Headache: 3-Moderate ("my feet hurt") CIWA-Ar Total Score: 12 S Progress Note (SOAP) Subjective: 54 years old male admitted on 07/24/19 for alcohol withdrawal sx management trerating with librium detox regiment c/o foot ache tylenal 650 mg po x 1 Objective: 07/25/19 10:07 Vital Signs Temperature 98.3 F 07/25/19 08:57 Pulse Rate 65 07/25/19 08:57 Respiratory Rate 18 07/25/19 08:57 Blood Pressure 127/77 07/25/19 08:57 O2 Sat by Pulse Oximetry (%) Laboratory Last Values WBC 5.8 K/mm3 (4.0-10.0) 07/24/19 13:40 RBC 4.01 M/mm3 (4.00-5.60) 07/24/19 13:40 Hgb 12.3 GM/dL (11.7-16.9) 07/24/19 13:40 Hct 37.0 % (35.4-49) 07/24/19 13:40 MCV 92.1 fl (80-96) 07/24/19 13:40 MCH 30.6 pg (25.7-33.7) 07/24/19 13:40 MCHC 33.2 g/dl (32.0-35.9) 07/24/19 13:40 RDW 12.8 % (11.9-15.9) 07/24/19 13:40 Plt Count 324 K/MM3 (134-434) D 07/24/19 13:40 MPV 8.5 fl (7.5-11.1) 07/24/19 13:40 Sodium 141 mmol/L (136-145) 07/24/19 13:40 Potassium 3.9 mmol/L (3.5-5.1) 07/24/19 13:40 Chloride 109 mmol/L (98-107) H 07/24/19 13:40 Carbon Dioxide 25 mmol/L (21-32) 07/24/19 13:40 Anion Gap 7 MMOL/L (8-16) L 07/24/19 13:40 BUN 17.7 mg/dL (7-18) 07/24/19 13:40 Creatinine 1.0 mg/dL (0.55-1.3) 07/24/19 13:40 Est GFR (CKD-EPI)AfAm 97.08 07/24/19 13:40 Est GFR (CKD-EPI)NonAf 83.76 07/24/19 13:40 Random Glucose 133 mg/dL (74-106) H 07/24/19 13:40 Calcium 9.4 mg/dL (8.5-10.1) 07/24/19 13:40 Total Bilirubin 0.4 mg/dL (0.2-1) 07/24/19 13:40 AST 27 U/L (15-37) 07/24/19 13:40 ALT 36 U/L (13-61) 07/24/19 13:40 Alkaline Phosphatase 76 U/L (45-117) 07/24/19 13:40 Total Protein 7.4 g/dl (6.4-8.2) 07/24/19 13:40 Albumin 3.4 g/dl (3.4-5.0) 07/24/19 13:40 RPR Titer Nonreactive (NONREACTIVE) 07/24/19 13:40 lab noted 07/25/19 10:07 random glucose elevation fasting glucose Assessment: 07/25/19 10:12 alcohol withdrawal Plan: librium regiment
[2019-07-25] MEDS: SILVER SULFADIAZINE 1% TOP CREAM 50 GM JAR TP SCH ×2 (11:07→22:32)
[2019-07-25] MEDS: PRENATAL VITAMINS W/ FOLIC ACID TABLET (FP) PO SCH (11:07)
[2019-07-25] MEDS: THIAMINE HCL 100 MG TABLET (FP) PO SCH (22:32)
[2019-07-26] MEDS: chlordiazePOXIDE HCL 25 MG CAPSULE PO SCH ×5 (00:07→23:13)
[2019-07-26] MEDS: SILVER SULFADIAZINE 1% TOP CREAM 50 GM JAR TP SCH ×2 (10:41→23:13)
[2019-07-26] MEDS: PRENATAL VITAMINS W/ FOLIC ACID TABLET (FP) PO SCH (10:41)
--- NOTE | 2019-07-26 16:05 | PN ---
[facility] CIWA - CIWA Score Nausea/Vomitin-Mild Nausea/No Vomiting Muscle Tremors: 3 Anxiety: 3 Agitation: 1-Slight > Activity Paroxysmal Sweats: 2 Orientation: 0-Oriented Tacttile Disturbances: 0-None Auditory Disturbances: 0-None Visual Disturbances: 0-None Headache: 0-None Present CIWA-Ar Total Score: 10 S Progress Note (SOAP) Subjective: 54 years old male admitted on 07/24/19 for alcohol withdrawal sx management treating with librium detox regiment f tremor anxiety restlessness Objective: 07/26/19 16:05 Vital Signs Temperature 98.9 F 07/26/19 12:36 Pulse Rate 61 07/26/19 12:36 Respiratory Rate 18 07/26/19 12:36 Blood Pressure 129/85 07/26/19 12:36 O2 Sat by Pulse Oximetry (%) Laboratory Last Values WBC 5.8 K/mm3 (4.0-10.0) 07/24/19 13:40 RBC 4.01 M/mm3 (4.00-5.60) 07/24/19 13:40 Hgb 12.3 GM/dL (11.7-16.9) 07/24/19 13:40 Hct 37.0 % (35.4-49) 07/24/19 13:40 MCV 92.1 fl (80-96) 07/24/19 13:40 MCH 30.6 pg (25.7-33.7) 07/24/19 13:40 MCHC 33.2 g/dl (32.0-35.9) 07/24/19 13:40 RDW 12.8 % (11.9-15.9) 07/24/19 13:40 Plt Count 324 K/MM3 (134-434) D 07/24/19 13:40 MPV 8.5 fl (7.5-11.1) 07/24/19 13:40 Sodium 141 mmol/L (136-145) 07/24/19 13:40 Potassium 3.9 mmol/L (3.5-5.1) 07/24/19 13:40 Chloride 109 mmol/L (98-107) H 07/24/19 13:40 Carbon Dioxide 25 mmol/L (21-32) 07/24/19 13:40 Anion Gap 7 MMOL/L (8-16) L 07/24/19 13:40 BUN 17.7 mg/dL (7-18) 07/24/19 13:40 Creatinine 1.0 mg/dL (0.55-1.3) 07/24/19 13:40 Est GFR (CKD-EPI)AfAm 97.08 07/24/19 13:40 Est GFR (CKD-EPI)NonAf 83.76 07/24/19 13:40 Random Glucose 133 mg/dL (74-106) H 07/24/19 13:40 Fasting Glucose 88 mg/dL (74-106) 07/26/19 08:00 Calcium 9.4 mg/dL (8.5-10.1) 07/24/19 13:40 Total Bilirubin 0.4 mg/dL (0.2-1) 07/24/19 13:40 AST 27 U/L (15-37) 07/24/19 13:40 ALT 36 U/L (13-61) 07/24/19 13:40 Alkaline Phosphatase 76 U/L (45-117) 07/24/19 13:40 Total Protein 7.4 g/dl (6.4-8.2) 07/24/19 13:40 Albumin 3.4 g/dl (3.4-5.0) 07/24/19 13:40 RPR Titer Nonreactive (NONREACTIVE) 07/24/19 13:40 lab noted Assessment: 07/26/19 16:05 alcohol withdrawal Plan: librium regiment
[2019-07-26] MEDS: THIAMINE HCL 100 MG TABLET (FP) PO SCH (23:13)
[2019-07-27] MEDS ORDERED: chlordiazePOXIDE HCL 10 MG CAPSULE PO PRN
[2019-07-27] MEDS: chlordiazePOXIDE HCL 10 MG CAPSULE PO SCH ×2 (06:33→11:13)
[2019-07-27 09:42] VITALS: BP 133/77; PULSE 70; TEMP 99
[2019-07-27] MEDS: SILVER SULFADIAZINE 1% TOP CREAM 50 GM JAR TP SCH (11:13)
[2019-07-27] MEDS: PRENATAL VITAMINS W/ FOLIC ACID TABLET (FP) PO SCH (11:13)
--- NOTE | 2019-07-27 15:18 | DS ---
[facility] Detox Discharge Summary Admission Date: 07/24/19 Discharge Date: 07/27/19 - History Present History: Alcohol Dependence Additional Comments: 54 yearsj old male admitted on 07/24/19 for alcohol withdrawal sx management treated with libirum detox regiment Mr Alvarado prefers to leave the detox today to prepare for [facility] admission alert oriented x 3 speech good hygiene clearly coherently ambulating steady gait ate breakfast respiratory clear lungs bilaterally on auscultation extremities full range of motion skin warm and dry Pertinent Past History: time for discharge 46 minutes - Physical Exam Results Vital Signs: Vital Signs Temperature 99.0 F 07/27/19 08:37 Pulse Rate 70 07/27/19 08:37 Respiratory Rate 16 07/27/19 08:37 Blood Pressure 133/77 07/27/19 08:37 O2 Sat by Pulse Oximetry (%) Pertinent Admission Physical Exam Findings: alcohol withdrawal Vital Signs Temperature 99.0 F 07/27/19 08:37 Pulse Rate 70 07/27/19 08:37 Respiratory Rate 16 07/27/19 08:37 Blood Pressure 133/77 07/27/19 08:37 O2 Sat by Pulse Oximetry (%) Laboratory Last Values WBC 5.8 K/mm3 (4.0-10.0) 07/24/19 13:40 RBC 4.01 M/mm3 (4.00-5.60) 07/24/19 13:40 Hgb 12.3 GM/dL (11.7-16.9) 07/24/19 13:40 Hct 37.0 % (35.4-49) 07/24/19 13:40 MCV 92.1 fl (80-96) 07/24/19 13:40 MCH 30.6 pg (25.7-33.7) 07/24/19 13:40 MCHC 33.2 g/dl (32.0-35.9) 07/24/19 13:40 RDW 12.8 % (11.9-15.9) 07/24/19 13:40 Plt Count 324 K/MM3 (134-434) D 07/24/19 13:40 MPV 8.5 fl (7.5-11.1) 07/24/19 13:40 Sodium 141 mmol/L (136-145) 07/24/19 13:40 Potassium 3.9 mmol/L (3.5-5.1) 07/24/19 13:40 Chloride 109 mmol/L (98-107) H 07/24/19 13:40 Carbon Dioxide 25 mmol/L (21-32) 07/24/19 13:40 Anion Gap 7 MMOL/L (8-16) L 07/24/19 13:40 BUN 17.7 mg/dL (7-18) 07/24/19 13:40 Creatinine 1.0 mg/dL (0.55-1.3) 07/24/19 13:40 Est GFR (CKD-EPI)AfAm 97.08 07/24/19 13:40 Est GFR (CKD-EPI)NonAf 83.76 07/24/19 13:40 Random Glucose 133 mg/dL (74-106) H 07/24/19 13:40 Fasting Glucose 88 mg/dL (74-106) 07/26/19 08:00 Calcium 9.4 mg/dL (8.5-10.1) 07/24/19 13:40 Total Bilirubin 0.4 mg/dL (0.2-1) 07/24/19 13:40 AST 27 U/L (15-37) 07/24/19 13:40 ALT 36 U/L (13-61) 07/24/19 13:40 Alkaline Phosphatase 76 U/L (45-117) 07/24/19 13:40 Total Protein 7.4 g/dl (6.4-8.2) 07/24/19 13:40 Albumin 3.4 g/dl (3.4-5.0) 07/24/19 13:40 RPR Titer Nonreactive (NONREACTIVE) 07/24/19 13:40 lab noted - Treatment Hospital Course: Detox Protocol Followed, Detoxed Safely, Responded well, Discharged Condition Good, Rehab Referral Accepted Patient has Accepted a Rehab Referral to: [facility] - Medication Discharge Medications: Ambulatory Orders traZODone HCL [Desyrel -] 25 mg PO HS #14 tablet 02/13/19 - Diagnosis (1) Alcohol dependence with uncomplicated withdrawal Status: Acute (2) GERD (gastroesophageal reflux disease) Status: Chronic Qualifiers: Esophagitis presence: without esophagitis Qualified Code(s): K21.9 - Gastro -esophageal reflux disease without esophagitis (3) Substance induced mood disorder Status: Suspected (4) PPD positive Status: Resolved - AMA Did Patient Leave Against Medical Advice: No CIWA Score - CIWA Score Nausea/Vomitin-No Nausea/No Vomiting Muscle Tremors: 2 Anxiety: 2 Agitation: 0-Normal Activity Paroxysmal Sweats: 1-Minimal Palms Moist Orientation: 0-Oriented Tacttile Disturbances: 0-None Auditory Disturbances: 0-None Visual Disturbances: 0-None Headache: 0-None Present CIWA-Ar Total Score: 5
[2019-07-28] MEDS ORDERED: chlordiazePOXIDE HCL 10 MG CAPSULE PO SCH (05:00)
[2019-07-29] MEDS ORDERED: chlordiazePOXIDE HCL 10 MG CAPSULE PO ONE (05:00)
== END 2019-07-27 13:00 | disposition home or self-care (01) | DRG 774 ==
LOC: YASAS 11:57 → Y3N 13:36
PROVIDERS: ADMIT Allergy & Immunology; ATTEND Allergy & Immunology
PROC: HZ2ZZZZ Detoxification Services for Substance Abuse Treatment (ICD-10-PCS; principal; 2019-07-24)
DX: F10.230 Alcohol dependence with withdrawal, uncomplicated (principal); F14.20 Cocaine dependence, uncomplicated; F17.210 Nicotine dependence, cigarettes, uncomplicated; F19.24 Other psychoactive substance dependence with psychoactive substance-induced mood disorder; F32.9 Major depressive disorder, single episode, unspecified; I10 Essential (primary) hypertension; K21.9 Gastro-esophageal reflux disease without esophagitis; R76.11 Nonspecific reaction to tuberculin skin test without active tuberculosis; R73.9 Hyperglycemia, unspecified; R63.4 Abnormal weight loss; Z68.25 Body mass index [BMI] 25.0-25.9, adult; Z59.0 Homelessness
CPT/HCPCS: 36415; 80053; 82947; 85027; 86593

== ENCOUNTER 2020-08-12 12:50 | Inpatient (IN) | payer OTHER ==
[2020-08-12 14:51] VITALS: BMI 25.0
[2020-08-12] MEDS ORDERED: chlordiazePOXIDE HCL 25 MG CAPSULE PO PRN (15:28)
[2020-08-12] MEDS ORDERED: METHOCARBAMOL 500 MG TABLET PO PRN (15:30)
[2020-08-12] MEDS ORDERED: BISMUTH SUBSALICYLATE 524 MG/30 ML UD PO PRN (15:30)
[2020-08-12] MEDS ORDERED: ONDANSETRON *ODT* 4 MG TABLET SL PRN (15:30)
[2020-08-12] MEDS ORDERED: IBUPROFEN 400 MG TABLET (FP) PO PRN (15:30)
[2020-08-12] MEDS ORDERED: MAG HYDROX/AL HYDROX/SIMETH 30 ML UNIT-DOSE CUP PO PRN (15:30)
[2020-08-12] MEDS ORDERED: ACETAMINOPHEN 325 MG TABLET (FP) PO PRN ×2 (15:30)
[2020-08-12] MEDS ORDERED: MAGNESIUM CITRATE 300 ML BOTTLE PO PRN (15:30)
[2020-08-12] MEDS ORDERED: NICOTINE POLACRILEX 2 MG GUM BUC PRN (15:30)
[2020-08-12] MEDS ORDERED: MENTHOL/PHENOL 1 EACH UD MM PRN (15:30)
[2020-08-12] MEDS ORDERED: MAGNESIUM HYDROX 2400MG/30ML ORAL SUSPENSION 30 ML CUP PO PRN (15:30)
[2020-08-12] MEDS: chlordiazePOXIDE HCL 25 MG CAPSULE PO SCH ×2 (22:05→22:06)
[2020-08-12] MEDS: hydrOXYzine PAMOATE 25 MG CAPSULE (FP) PO SCH ×2 (22:06)
[2020-08-12] MEDS: MELATONIN 5 MG TABLETS PO SCH (22:06)
[2020-08-12] MEDS: THIAMINE HCL 100 MG TABLET (FP) PO SCH (22:06)
[2020-08-13] MEDS: chlordiazePOXIDE HCL 25 MG CAPSULE PO SCH ×4 (06:19→22:17)
[2020-08-13] MEDS: hydrOXYzine PAMOATE 25 MG CAPSULE (FP) PO SCH ×5 (06:23→22:16)
[2020-08-13] MEDS: PRENATAL VITAMINS W/ FOLIC ACID TABLET (FP) PO SCH (10:43)
[2020-08-13 11:57] LABS: HEMOGLOBIN 12.3 GM/dL (11.7-16.9); MCH 30.7 pg (25.7-33.7); MCHC 33.3 g/dl (32.0-35.9); MEAN CELL VOLUME 92.3 fl (80-96); MEAN PLT VOLUME 9.6 fl (7.5-11.1); PLATELET COUNT 297 K/MM3 (134-434); RBC 4.01 M/mm3 (4.00-5.60); RDW 12.6 % (11.9-15.9); WHITE BLOOD COUNT 8.3 K/mm3 (4.0-10.0)
[2020-08-13 12:57] LABS: POTASSIUM 3.9 mmol/L (3.5-5.1)
[2020-08-13 12:59] LABS: BLOOD UREA NITROGEN 12.5 mg/dL (7-18); CALCIUM 9.4 mg/dL (8.5-10.1)
[2020-08-13 13:00] LABS: ALBUMIN 3.3 g/dl (3.4-5.0)
[2020-08-13 13:03] LABS: BILIRUBIN,TOTAL 0.2 mg/dL (0.2-1); CREATININE 0.9 mg/dL (0.55-1.3)
[2020-08-13 13:04] LABS: TOT PROT 6.9 g/dl (6.4-8.2)
[2020-08-13 13:09] LABS: HIV INTERPRETATION NEGATIVE (NEGATIVE)
[2020-08-13] MEDS: MELATONIN 5 MG TABLETS PO SCH (22:16)
[2020-08-13] MEDS: THIAMINE HCL 100 MG TABLET (FP) PO SCH (22:16)
[2020-08-14] MEDS: chlordiazePOXIDE HCL 25 MG CAPSULE PO SCH ×4 (07:37→22:09)
[2020-08-14] MEDS: hydrOXYzine PAMOATE 25 MG CAPSULE (FP) PO SCH (07:38)
[2020-08-14] MEDS ORDERED: hydrOXYzine PAMOATE 25 MG CAPSULE (FP) PO PRN (09:03)
[2020-08-14] MEDS: PRENATAL VITAMINS W/ FOLIC ACID TABLET (FP) PO SCH (10:28)
[2020-08-14] MEDS: THIAMINE HCL 100 MG TABLET (FP) PO SCH (22:09)
[2020-08-14] MEDS: MELATONIN 5 MG TABLETS PO SCH (22:09)
[2020-08-15] MEDS ORDERED: chlordiazePOXIDE HCL 10 MG CAPSULE PO PRN
[2020-08-15] MEDS ORDERED: chlordiazePOXIDE HCL 10 MG CAPSULE PO SCH (05:00)
[2020-08-15 07:31] VITALS: BP 142/92; PULSE 69; TEMP 97.5
[2020-08-16] MEDS ORDERED: chlordiazePOXIDE HCL 10 MG CAPSULE PO SCH (05:00)
[2020-08-17] MEDS ORDERED: chlordiazePOXIDE HCL 10 MG CAPSULE PO ONE (05:00)
== END 2020-08-15 08:58 | disposition left against medical advice (07) | DRG 770 ==
LOC: EDBD → YASAS 12:50 → Y3N 15:58
PROVIDERS: ADMIT Allergy & Immunology; ATTEND Allergy & Immunology
PROC: HZ2ZZZZ Detoxification Services for Substance Abuse Treatment (ICD-10-PCS; principal; 2020-08-12)
DX: F10.230 Alcohol dependence with withdrawal, uncomplicated (principal); F14.20 Cocaine dependence, uncomplicated; F12.20 Cannabis dependence, uncomplicated; F17.210 Nicotine dependence, cigarettes, uncomplicated; F32.9 Major depressive disorder, single episode, unspecified; F19.24 Other psychoactive substance dependence with psychoactive substance-induced mood disorder; K21.9 Gastro-esophageal reflux disease without esophagitis; K42.9 Umbilical hernia without obstruction or gangrene; R76.11 Nonspecific reaction to tuberculin skin test without active tuberculosis; R20.0 Anesthesia of skin
CPT/HCPCS: 36415; 71046-TC-FY; 80053; 85027; 86780; 87389; C9803; U0003

== ENCOUNTER 2020-09-10 12:11 | Inpatient (IN) | payer OTHER ==
[2020-09-10 13:15] VITALS: BMI 24.0
[2020-09-10] MEDS ORDERED: NICOTINE POLACRILEX 2 MG GUM BC PRN (17:09)
[2020-09-10] MEDS ORDERED: ACETAMINOPHEN 325 MG TABLET (FP) PO PRN (17:09)
[2020-09-10] MEDS ORDERED: LOPERAMIDE HCL 2 MG CAPSULE PO PRN (17:09)
[2020-09-10] MEDS ORDERED: MAGNESIUM HYDROX 2400MG/30ML ORAL SUSPENSION 30 ML CUP PO PRN (17:09)
[2020-09-10] MEDS ORDERED: MAGNESIUM CITRATE 300 ML BOTTLE PO PRN (17:09)
[2020-09-10] MEDS ORDERED: P-EPHED 60MG/TRIPROLIDI 2.5MG TABLET PO PRN (17:09)
[2020-09-10] MEDS ORDERED: IBUPROFEN 400 MG TABLET (FP) PO PRN (17:09)
[2020-09-10] MEDS ORDERED: guaiFENesin 200 MG/10 ML 10 ML UNIT-DOSE CUPS PO PRN (17:09)
[2020-09-10] MEDS ORDERED: MAG HYDROX/AL HYDROX/SIMETH 30 ML UNIT-DOSE CUP PO PRN (17:09)
[2020-09-10] MEDS ORDERED: MASKS NR ONE (19:58)
[2020-09-10] MEDS: THIAMINE HCL 100 MG TABLET (FP) PO SCH (21:01)
[2020-09-10] MEDS: MELATONIN 5 MG TABLETS PO SCH (21:02)
[2020-09-11] MEDS: NICOTINE 14 MG/24 HOURS TOPICAL PATCH TD SCH (10:35)
[2020-09-11] MEDS: PRENATAL VITAMINS W/ FOLIC ACID TABLET (FP) PO SCH (10:35)
[2020-09-11 11:01] LABS: HEMATOCRIT 37.1 % (35.4-49); HEMOGLOBIN 12.4 GM/dL (11.7-16.9); MCH 30.7 pg (25.7-33.7); MCHC 33.3 g/dl (32.0-35.9); MEAN CELL VOLUME 92.1 fl (80-96); MEAN PLT VOLUME 8.6 fl (7.5-11.1); PLATELET COUNT 219 K/MM3 (134-434); RBC 4.03 M/mm3 (4.00-5.60); RDW 13.4 % (11.9-15.9); WHITE BLOOD COUNT 6.6 K/mm3 (4.0-10.0)
[2020-09-11 11:11] LABS: CALCIUM 8.5 mg/dL (8.5-10.1)
[2020-09-11 11:12] LABS: BLOOD UREA NITROGEN 15.3 mg/dL (7-18)
[2020-09-11 11:15] LABS: CREATININE 0.9 mg/dL (0.55-1.3)
[2020-09-11 11:16] LABS: BILIRUBIN,TOTAL 0.3 mg/dL (0.2-1)
[2020-09-11 11:17] LABS: TOT PROT 5.9 g/dl (6.4-8.2)
[2020-09-11 16:49] LABS: PH,URINE 7.5 (5.0-8.0); URINE APPEARANCE CLEAR; URINE BILIRUBIN NEGATIVE (NEGATIVE); URINE COLOR YELLOW; URINE GLUCOSE (UA) NEGATIVE (NEGATIVE); URINE KETONE TRACE (NEGATIVE); URINE LEUK ESTERASE NEGATIVE (NEGATIVE); URINE NITRITE NEGATIVE (NEGATIVE); URINE PROTEIN NEGATIVE (NEGATIVE)
[2020-09-11] MEDS: THIAMINE HCL 100 MG TABLET (FP) PO SCH (21:27)
[2020-09-11] MEDS: MELATONIN 5 MG TABLETS PO SCH (21:27)
[2020-09-12] MEDS: PRENATAL VITAMINS W/ FOLIC ACID TABLET (FP) PO SCH (09:52)
[2020-09-12] MEDS: NICOTINE 14 MG/24 HOURS TOPICAL PATCH TD SCH (09:52)
[2020-09-12] MEDS: MELATONIN 5 MG TABLETS PO SCH (21:39)
[2020-09-12] MEDS: THIAMINE HCL 100 MG TABLET (FP) PO SCH (21:39)
[2020-09-13] MEDS: PRENATAL VITAMINS W/ FOLIC ACID TABLET (FP) PO SCH (10:10)
[2020-09-13] MEDS: NICOTINE 14 MG/24 HOURS TOPICAL PATCH TD SCH (10:10)
[2020-09-13] MEDS: MELATONIN 5 MG TABLETS PO SCH (21:28)
[2020-09-13] MEDS: THIAMINE HCL 100 MG TABLET (FP) PO SCH (21:28)
[2020-09-14] MEDS: PRENATAL VITAMINS W/ FOLIC ACID TABLET (FP) PO SCH (09:47)
[2020-09-14] MEDS: NICOTINE 14 MG/24 HOURS TOPICAL PATCH TD SCH (09:47)
[2020-09-14] MEDS: MELATONIN 5 MG TABLETS PO SCH (22:57)
[2020-09-14] MEDS: THIAMINE HCL 100 MG TABLET (FP) PO SCH (22:58)
[2020-09-15 08:08] LABS: SARS-CoV-2 NAA Not Detected (Not Detected)
[2020-09-15] MEDS: NICOTINE 14 MG/24 HOURS TOPICAL PATCH TD SCH (09:12)
[2020-09-15] MEDS: PRENATAL VITAMINS W/ FOLIC ACID TABLET (FP) PO SCH (09:12)
[2020-09-15] MEDS: MELATONIN 5 MG TABLETS PO SCH (21:22)
[2020-09-15] MEDS: THIAMINE HCL 100 MG TABLET (FP) PO SCH (21:23)
[2020-09-16] MEDS: PRENATAL VITAMINS W/ FOLIC ACID TABLET (FP) PO SCH (10:11)
[2020-09-16] MEDS: NICOTINE 14 MG/24 HOURS TOPICAL PATCH TD SCH (10:11)
[2020-09-16] MEDS: THIAMINE HCL 100 MG TABLET (FP) PO SCH (21:12)
[2020-09-16] MEDS: MELATONIN 5 MG TABLETS PO SCH (21:12)
[2020-09-17] MEDS: PRENATAL VITAMINS W/ FOLIC ACID TABLET (FP) PO SCH (09:57)
[2020-09-17] MEDS: NICOTINE 14 MG/24 HOURS TOPICAL PATCH TD SCH (09:58)
[2020-09-17] MEDS: THIAMINE HCL 100 MG TABLET (FP) PO SCH (21:20)
[2020-09-17] MEDS: MELATONIN 5 MG TABLETS PO SCH (21:20)
[2020-09-18] MEDS: PRENATAL VITAMINS W/ FOLIC ACID TABLET (FP) PO SCH (10:45)
[2020-09-18] MEDS: NICOTINE 14 MG/24 HOURS TOPICAL PATCH TD SCH (10:45)
[2020-09-18] MEDS: MELATONIN 5 MG TABLETS PO SCH (21:07)
[2020-09-18] MEDS: THIAMINE HCL 100 MG TABLET (FP) PO SCH (21:07)
[2020-09-19] MEDS: PRENATAL VITAMINS W/ FOLIC ACID TABLET (FP) PO SCH (10:13)
[2020-09-19] MEDS: NICOTINE 14 MG/24 HOURS TOPICAL PATCH TD SCH (10:13)
[2020-09-19] MEDS: MELATONIN 5 MG TABLETS PO SCH (21:14)
[2020-09-19] MEDS: THIAMINE HCL 100 MG TABLET (FP) PO SCH (21:14)
[2020-09-20 07:04] VITALS: BP 135/81; PULSE 65; TEMP 96.7
== END 2020-09-20 09:14 | disposition home or self-care (01) | DRG 772 ==
LOC: YASAS 12:11 → Y3E 18:30
PROVIDERS: ADMIT Allergy & Immunology; ATTEND Allergy & Immunology
PROC: HZ42ZZZ Group Counseling for Substance Abuse Treatment, Cognitive-Behavioral (ICD-10-PCS; principal; 2020-09-10)
DX: F10.20 Alcohol dependence, uncomplicated (principal); F14.20 Cocaine dependence, uncomplicated; F13.10 Sedative, hypnotic or anxiolytic abuse, uncomplicated; F17.210 Nicotine dependence, cigarettes, uncomplicated; F32.9 Major depressive disorder, single episode, unspecified; F41.9 Anxiety disorder, unspecified; I10 Essential (primary) hypertension; K21.9 Gastro-esophageal reflux disease without esophagitis; K59.00 Constipation, unspecified; R76.11 Nonspecific reaction to tuberculin skin test without active tuberculosis; Z56.0 Unemployment, unspecified; Z59.0 Homelessness
CPT/HCPCS: 36415; 80053; 81003; 85027; 86780; 93005; 93010; C9803; U0003; U0005

== ENCOUNTER 2022-10-01 10:09 | Inpatient (IN) | payer OTHER ==
[2022-10-01 10:47] VITALS: BMI 23.0
[2022-10-01] MEDS ORDERED: MAG HYDROX/AL HYDROX/SIMETH 30 ML UNIT-DOSE CUP PO PRN (11:50)
[2022-10-01] MEDS ORDERED: IBUPROFEN 400 MG TABLET (FP) PO PRN (11:50)
[2022-10-01] MEDS ORDERED: POLYETHYLENE GLYCOL (HEALTHYLAX) 3350 17 GM PACKET PO PRN (11:50)
[2022-10-01] MEDS ORDERED: IBUPROFEN 600 MG TABLET (FP) PO PRN (11:50)
[2022-10-01] MEDS ORDERED: MAGNESIUM HYDROX 2400MG/30ML ORAL SUSPENSION 30 ML CUP PO PRN (11:50)
[2022-10-01] MEDS ORDERED: ONDANSETRON *ODT* 4 MG TABLET SL PRN (11:50)
[2022-10-01] MEDS ORDERED: BISMUTH SUBSALICYLATE 262 MG/15 ML BTL PO PRN (11:50)
[2022-10-01] MEDS ORDERED: NALOXONE HCL (KLOXXADO) 8 MG SPRAY NS PRN (11:50)
[2022-10-01] MEDS ORDERED: hydrOXYzine PAMOATE 25 MG CAPSULE (FP) PO PRN (11:50)
[2022-10-01] MEDS ORDERED: chlordiazePOXIDE HCL 25 MG CAPSULE PO PRN (11:50)
[2022-10-01] MEDS ORDERED: NICOTINE 10 MG CARTRIDGE (INHALER) IH PRN (11:50)
[2022-10-01] MEDS ORDERED: LOPERAMIDE HCL 2 MG CAPSULE PO PRN (11:50)
[2022-10-01] MEDS ORDERED: METHOCARBAMOL 500 MG TABLET PO PRN (11:50)
[2022-10-01] MEDS ORDERED: BENZONATATE 200 MG CAPSULE PO PRN (11:50)
[2022-10-01] MEDS ORDERED: DICYCLOMINE HCL 10 MG CAPSULE PO PRN (11:50)
[2022-10-01] MEDS ORDERED: BENZOCAINE/MENTHOL (CHLORASEPTIC ) LOZENGE MM PRN (11:50)
[2022-10-01] MEDS ORDERED: ACETAMINOPHEN 325 MG TABLET (FP) PO PRN (11:50)
[2022-10-01] MEDS ORDERED: NALOXONE HCL 0.4 MG/ML VIAL IM PRN (11:50)
[2022-10-01] MEDS ORDERED: guaiFENesin 600 MG TABLET.ER (FP) PO PRN (11:50)
[2022-10-01] MEDS: PRENATAL VITAMINS W/ FOLIC ACID TABLET (FP) PO SCH (12:44)
[2022-10-01] MEDS: NICOTINE 14 MG/24 HOURS TOPICAL PATCH TD SCH (12:45)
[2022-10-01 14:53] LABS: POTASSIUM 3.8 mmol/L (3.5-5.1)
[2022-10-01 14:55] LABS: ALBUMIN 3.3 g/dl (3.4-5.0); BLOOD UREA NITROGEN 16.8 mg/dL (7-18); CALCIUM 8.8 mg/dL (8.5-10.1)
[2022-10-01 14:59] LABS: CREATININE 0.9 mg/dL (0.55-1.3)
[2022-10-01 15:00] LABS: BILIRUBIN,TOTAL 0.5 mg/dL (0.2-1); TOT PROT 6.5 g/dl (6.4-8.2)
[2022-10-01 15:09] LABS: HEMATOCRIT 36.9 % (35.4-49); HEMOGLOBIN 12.5 GM/dL (11.7-16.9); MCH 30.7 pg (25.7-33.7); MCHC 33.8 g/dl (32.0-35.9); MEAN CELL VOLUME 90.6 fl (80-96); PLATELET COUNT 203 10^3/uL (134-434); RBC 4.07 M/mm3 (4.00-5.60); RDW 13.4 % (11.9-15.9); WHITE BLOOD COUNT 6.1 K/mm3 (4.0-10.0)
[2022-10-01] MEDS: chlordiazePOXIDE HCL 25 MG CAPSULE PO SCH ×2 (18:08→23:02)
[2022-10-01] MEDS ORDERED: MELATONIN 5 MG TABLETS PO SCH (22:00)
[2022-10-01] MEDS ORDERED: THIAMINE HCL 100 MG TABLET (FP) PO SCH (22:00)
[2022-10-02] MEDS: chlordiazePOXIDE HCL 25 MG CAPSULE PO SCH ×3 (05:59→17:42)
[2022-10-02] MEDS: NICOTINE 14 MG/24 HOURS TOPICAL PATCH TD SCH (10:59)
[2022-10-02] MEDS: PRENATAL VITAMINS W/ FOLIC ACID TABLET (FP) PO SCH (10:59)
[2022-10-02 18:16] VITALS: BP 158/90; PULSE 74; RESP 18; TEMP 98.1
[2022-10-03] MEDS ORDERED: chlordiazePOXIDE HCL 25 MG CAPSULE PO SCH (05:00)
[2022-10-04] MEDS ORDERED: chlordiazePOXIDE HCL 10 MG CAPSULE PO PRN
[2022-10-04] MEDS ORDERED: chlordiazePOXIDE HCL 10 MG CAPSULE PO SCH (05:00)
[2022-10-05] MEDS ORDERED: chlordiazePOXIDE HCL 10 MG CAPSULE PO SCH (05:00)
[2022-10-06] MEDS ORDERED: chlordiazePOXIDE HCL 10 MG CAPSULE PO ONE (05:00)
== END 2022-10-02 23:18 | disposition left against medical advice (07) | DRG 770 ==
LOC: YASAS 10:09 → Y6N 12:11
PROVIDERS: ADMIT Allergy & Immunology; ATTEND Surgery
PROC: HZ2ZZZZ Detoxification Services for Substance Abuse Treatment (ICD-10-PCS; principal; 2022-10-01)
DX: F10.230 Alcohol dependence with withdrawal, uncomplicated (principal); F14.20 Cocaine dependence, uncomplicated; F13.20 Sedative, hypnotic or anxiolytic dependence, uncomplicated; F12.20 Cannabis dependence, uncomplicated; F17.210 Nicotine dependence, cigarettes, uncomplicated; F19.24 Other psychoactive substance dependence with psychoactive substance-induced mood disorder; F41.9 Anxiety disorder, unspecified; F32.A Depression, unspecified; I10 Essential (primary) hypertension; K21.9 Gastro-esophageal reflux disease without esophagitis; R76.11 Nonspecific reaction to tuberculin skin test without active tuberculosis; Z28.310 Unvaccinated for COVID-19; Z28.9 Immunization not carried out for unspecified reason
CPT/HCPCS: 36415; 71046-TC-FY; 80053; 85027; 86780; 87811; C9803-CS; U0003; U0005